=== PATIENT | female | born 1965 | race Two or more races ===

== ENCOUNTER 2024-12-18 10:29 | Emergency (ER) | payer MEDICAID, SELFPAY ==
--- NOTE | 2024-12-18 10:44 | XR_ITS ---
Examination: Thoracic spine 3 views Technique: AP lateral coned lateral upper dorsal spine 3 views Exam date and time: December 18, 2024 1057 hrs. Indication: Back pain beginning 10 days ago. Findings: Moderate osteopenia Chronic osteoporotic compression T12 Depression superior endplate T11 which may be acute, clinical correlation advised Mild diffuse thoracic disc narrowing Impression: Mild compression fracture T11 which may be acute, clinical correlation advised Consider CT scan thoracic spine without contrast follow-up
--- NOTE | 2024-12-18 10:44 | XR_ITS ---
Examination: Lumbar spine 3 views Technique one AP lateral coned lateral lower lumbar spine 3 views Exam date and time: December 18, 2024 1055 hrs. Indications: Back pain beginning 10 days ago. Findings: Adequate alignment lumbar vertebral bodies Minimal old wedging T12 No lumbar fracture Moderate disc narrowing L5-S1 No spondylolisthesis Impression: Moderate degenerative disc disease L5-S1
[2024-12-18 10:48] VITALS: BP 127/80; PULSE 57; RESP 20; TEMP 36.6; O2SAT 98; BMI 28.6
--- NOTE | 2024-12-18 10:49 | EDNOTE_ITS ---
ED Back Injury Pain RME/HPI General Chief Complaint: Back Pain/Injury Stated Complaint: LEFT BACK PAIN X 10 DAYS; HX A-FIB Time Seen by Provider: 12/18/24 10:37 Source: patient Arrival date/time: 12/18/24 10:29 59-year-old female with a history of A-fib, hyperlipidemia presents to the emergency room with a chief complaint of left-sided back pain x 10 days. Mode of arrival: ambulatory Limitations: no limitations Related Data Home Medications ?Medication ?Instructions ?Recorded ?Confirmed amiodarone 200 mg tablet 200 mg PO QDAY 07/06/2406/26 folic acid 1 mg tablet 1 mg PO QDAY 07/06/24 valsartan 80 mg tablet 80 mg PO QDAY 07/06/2407/06 Previous Rx's ?Medication ?Instructions ?Recorded hydrocodone 5 mg-acetaminophen 325 1 tab PO BID PRN pa in #10 tabs 12/18/24 mg tablet Allergies Allergy/AdvReac Type Severity Reaction Status Date / Time No Known Allergies Allergy Verified 12/18/24 10:32 Review of Systems Review of Systems Systems Reviewed: All systems reviewed, normal except as documented Constitutional Constitutional: Reports system reviewed and no additional complaints, except as documented, Denies fatigue, Denies fever(s), Denies headache(s) and Denies weakness Eyes Eyes: Reports system reviewed and no additional complaints, except as documented, Denies blurry vision and Denies change in vision ENT Ears, Nose, Mouth, and Throat: Reports system reviewed and no additional complaints, except as documented, Denies otalgia, Denies headache(s), Denies nasal congestion, Denies throat swelling and Denies vertigo Cardiovascular Cardiovascular: Reports system reviewed and no additional complaints, except as documented, Denies chest pain, Denies dyspnea and Denies dyspnea on exertion Respiratory Respiratory: Reports system reviewed and no additional complaints, except as documented, Denies chest congestion, Denies cough, Denies dyspnea, Denies dyspnea on exertion and Denies wheezing Gastrointestinal Gastrointestinal: Reports system reviewed and no additional complaints, except as documented, Denies abdominal pain, Denies cramping, Denies nausea and Denies vomiting Genitourinary Genitourinary: Reports system reviewed and no additional complaints, except as documented Musculoskeletal Musculoskeletal: Reports system reviewed and no additional complaints, except as documented, Reports arthralgias, Reports back pain and Reports muscle weakness Integumentary/Breasts Skin/Breast: Reports system reviewed and no additional complaints, except as documented and Denies wounds Neurologic Neurologic: Reports system reviewed and no additional complaints, except as documented, Denies confusion, Denies headache(s), Denies lack of coordination, Denies vertigo and Denies weakness Psychiatric Psychiatric: Reports system reviewed and no additional complaints, except as documented, Denies anxiety, Denies confusion, Denies depression, Denies paranoia, Denies suicidal ideation and Denies tactile hallucinations Endocrine Endocrine: Reports system reviewed and no additional complaints, except as documented and Denies fatigue Hematologic/Lymphatic Hematologic/Lymphatic: Reports system reviewed and no additional complaints, except as documented and Denies lymphadenopathy Allergic/Immunologic Allergic/Immunologic: Reports system reviewed and no additional complaints, except as documented, Denies throat swelling, Denies urticaria and Denies wheezing Past Medical History Past Medical History NEUROLOGIC: Negative Neurological Disorders CARDIAC: Positive Cardiac Disorders, Atrial Fibrillation and Hypertension; Negative Congestive Heart Failure RESPIRATORY: Negative Chronic Obstructive Pulmonary Disease (COPD) GASTROINTESTINAL: Negative Gastrointestinal Disorders GENITOURINARY: Negative Genitourinary Disorders or Renal Disease REPRODUCTIVE: Positive Previous Pregnancies MUSCULOSKELETAL: Negative Musculoskeletal Disorders ENT: Positive Cataracts ENDOCRINE: Positive Endocrine Disorders (Thyroid); Negative Diabetes Mellitus Type 1 or Diabetes Mellitus Type 2 HEMATOLOGIC: Positive Anemia (microcytic anemia, sees Dr Augustine); Negative Blood Disorders OTHER HISTORY: Positive Chicken Pox; Negative Hospitalization, Autoimmune Disease, Blood Transfusions, Anesthesia Reactions or Cancer Family History FAMILY HISTORY: Positive Family Cancer; Negative Family Psychiatric Problems, Family Respiratory Disorders, Family Cardiac Disorders, Family Gastrointestinal Problems, Family Surgery or Family Anesthesia Reaction Surgical History SURGICAL: Positive Tonsillectomy Social History SMOKING STATUS: Never smoker ED Exam General Limitations: Present no limitations General appearance: Present alert and in no apparent distress Head Head exam: Present atraumatic Eye Eye exam: Present normal appearance, PERRL and EOMI ENT ENT exam: Present normal exam, normal oropharynx and mucous membranes moist Neck Neck exam: Present normal inspection, full ROM and trachea midline Chest Chest inspection: Present normal inspection and symmetric chest wall rise Respiratory Respiratory exam: Present normal lung sounds bilaterally Cardiovascular Cardiovascular exam: Present regular rate, normal rhythm and normal heart sounds Abdominal Exam Abdominal exam: Present soft and normal bowel sounds Extremities Exam Extremities exam: Present normal inspection and full ROM Back Exam Back exam: Present normal inspection, full ROM, tenderness and vertebral tenderness; Absent CVA tenderness (R) or CVA tenderness (L) Back 1 view image: 2 1. Tenderness with palpation Neurological Exam Neurological exam: Present alert, oriented X3 and CN II-XII intact Psychiatric Psychiatric exam: Present normal affect and normal mood Skin Skin exam: Present warm, dry, intact and normal color Course Quality Measures none Orders Category Date Time Status CT thoracic spine wo con Stat Exams 12/18/24 14:06 Completed XR lumbar spine 2-3V Stat Exams 12/18/24 10:44 Completed XR thoracic spine 2V Stat Exams 12/18/24 10:44 Completed HYDROcodone*/APAP 5/325 [[place] 5/325] Med 12/18/24 14:07 Discontinued 1 tab PO X1 ONE Ketorolac Inj [Toradol Inj] Med 12/18/24 10:48 Discontinued 30 mg IM X1 ONE Ondansetron Odt [Zofran Odt] Med 12/18/24 14:07 Discontinued 4 mg PO X1 ONE Vital Signs Vital signs: Vital Signs Temperature 97.8 F 12/18/24 10:48 Pulse Rate 57 L 12/18/24 10:48 Respiratory Rate 20 12/18/24 10:48 Blood Pressure 127/80 12/18/24 10:48 Pulse Oximetry (%) 98 12/18/24 10:48 Oxygen Delivery Method Room Air 12/18/24 10:48 O2 saturation 98% within normal limits Back Pain / Injury MDM Narrative MDM Narrative:: 59-year-old female with a history of A-fib, hyperlipidemia presents to the emergency room with a chief complaint of left-sided back pain x 10 days. Patient is hemodynamically stable and in no apparent distress Physical examination shows tenderness and pain with palpation to the lumbar spine and thoracic area of her spine. Patient denies any trauma heavy lifting and states she just woke up with severe backside pain. Patient denies any saddle anesthesia, loss of bowel or bladder function, numbness to the lower extremities. Patient is able to ambulate but states she has pain. A CT of the thoracic spine was completed and shows a mild acute compression fracture of T11. Social service was contacted to have the patient receive a TLSO back brace. Patient was educated to follow-up with primary care provider for referral to an sales development specialist. Patient was educated return to the emergency room for any evidence of worsening signs or symptoms Patient data External records reviewed:: [facility] previous records Clinical information provided by:: patient Social determinants that could affect healthcare access:: none Patient has the following chronic illnesses:: A-fib How is presenting disease/condition affected by chronic disease/condition?: u neffected by Evaluation data The following diagnostics were reviewed and interpreted by me:: lab results and radiology exam(s) Lab and/or radiology exams considered but not ordered:: Labs and radiology exams considered and ordered Interpretation Summary: CT thoracic spine-Findings: Significant osteopenia Chronic osteoporotic compression T12 Acute mild compression fracture T11 vertebral body, depression superior endplate Reduction in height of this vertebral body 10% Adequate alignment of this vertebral body Impression: Mild acute compression fracture T11 vertebral body Medications / Prescriptions Medications or Prescriptions considered but not ordered:: Medication given Medication administrations:: Medication Administration History Discontinued Medications Hydrocodone Bitart/Acetaminophen (Hydrocodone/Apap 5/325 Tablet) 1 tab PO X1 ONE Stop: 12/18/24 14:08 Last Admin: 12/18/24 15:33 Dose: 1 tab Documented By: LETICIA Ketorolac Tromethamine (Ketorolac Inj 60 Mg/2 Ml Vial) 30 mg IM X1 ONE Stop: 12/18/24 10:49 Last Admin: 12/18/24 11:28 Dose: 30 mg Documented By: CAMPBELL Ondansetron HCl (Ondansetron Odt 4 Mg Tabrap) 4 mg PO X1 ONE; Protocol Stop: 12/18/24 14:08 Last Admin: 12/18/24 15:33 Dose: 4 mg Documented By: [facility] Medication given Consultations Consultation(s) initiated? (list below): No Diagnosis Differential diagnosis back pain/injury: lumbar radiculopathy, sciatica, strain of lumbar region, thoracic back pain and other (Compression fracture) Most likely diagnosis given after review of the tests above:: Compression fracture Admission Indicated Admission indicated?: not indicated Admission Request Was there a request for admission?: No Disposition Plan Disposition Plan: Discharge Discharge Attestation Discharge Attestation: The patient and all family members were given an opportunity to ask questions and understood the discharge instructions. Discharge instructions specifically effects, indications for sooner follow up or return to the emergency department, and the expected course of current diagnosis. Patient condition: Stable Discharge Plan Plan Patient Disposition: HOME (Self Care) Disposition Comment: Stable Prescriptions/Referrals Prescriptions/Med Rec: New hydrocodone-acetaminophen 5-325 mg tablet 1 tab PO BID MDD 10mg PRN (Reason: pain) Qty: 10 0RF No Action amiodarone 200 mg Tablet 200 mg PO QDAY valsartan 80 mg Tablet 80 mg PO QDAY folic acid 1 mg Tablet 1 mg PO QDAY Referrals: Mariya Alonzo PA-C [Primary Care Provider] - In 1 week Problem List Clinical Impression: Compression fracture of thoracic vertebra Patient/Caregiver Discharge Instructions Education Materials: Back Fracture (Compression Fracture), ED Fracture, Vertebral Compression Additional Instructions: Please follow-up with your primary care provider in the next [address] of your thoracic back showed a compression fracture to T11. A back brace was ordered and they will be going to your house as this brace will need to be fitted. This is a TLSO brace. Please follow-up with your primary care provider as you will need a referral to an sales development specialist. Pain medication was sent to your pharmacy For any evidence of worsening signs or symptoms please return to the emergency room immediately Print Language: Uzbek Stand Alone Forms: Tiffani Award Info., Patient Portal Info Letter MATEO/LEVI Supervising Physician MATEO/LEVI Supervising Physician: Dr. Richardson
[2024-12-18] MEDS: KETOROLAC INJ 60 MG/2 ML VIAL 30 MG IM (11:28)
--- NOTE | 2024-12-18 14:06 | XR_ITS ---
Examination: CT thoracic spine, without contrast. 2-D sagittal reconstructions. 2-D coronal reconstructions. 3-D reconstructions. Date and time of exam:December 18, 2023 at 1500 hrs. Indications: Generalized back pain beginning 2 weeks ago CTDI: vol (mGy):24.3 DLP: (mGycm):971 Technique: Multiple 1.25 mm axial sections of the thoracic spine without intravenous contrast have been obtained. 2-D sagittal and coronal reconstructions have been obtained. 3-D reconstructions have been obtained. Low dose protocols were performed. One or more of the following dose reduction techniques were used; automated exposure control, adjustment of the mA and/or KV according to patient size, use of iterative reconstruction technique. Findings: Significant osteopenia Chronic osteoporotic compression T12 Acute mild compression fracture T11 vertebral body, depression superior endplate Reduction in height of this vertebral body 10% Adequate alignment of this vertebral body Impression: Mild acute compression fracture T11 vertebral body
[2024-12-18 15:30] VITALS: BP 127/77; PULSE 55; RESP 16; O2SAT 99
--- NOTE | 2024-12-18 15:30 | PC.NURSE ---
pt here with c/o back pain X 10 days after lifing and stacking 2 chairs. Denies fall
[2024-12-18] MEDS: HYDROcodone/APAP 5/325 TABLET 1 TAB PO (15:33)
[2024-12-18] MEDS: ONDANSETRON ODT 4 MG TABRAP PO (15:33)
--- NOTE | 2024-12-18 16:38 | PC.CC ---
ASWYvonne was consulted by VLADISLAV Barlow for a TLSO Brace due to T11 FX. ASW made contact with Damián from [facility] who reports they can respond to the patient's home tomorrow morning and will make contact with the patient this evening to set up a time. ASW made face to face contact with the patient to confirm information on demographics. ASW sent purchase requisition sign by jail guard Sheryl, Script, and patient's demographics sheet to [facility]. Damián with [facility] confirmed he had received all information needed and would be making contact with patient. ASW provided update to patient.
== END 2024-12-18 16:49 | disposition home or self-care (01) ==
PROVIDERS: Emergency Provider Emergency Medicine; PCP Physician Assistant
DX: M48.54XA Collapsed vertebra, not elsewhere classified, thoracic region, initial encounter for fracture (principal); M54.50 Low back pain, unspecified
CPT/HCPCS: 72070; 72072; 72100; 72128; 96372; 99284; J1885; Q0162; A9270

== ENCOUNTER 2025-01-27 09:00 | Day surgery (SDC) | payer MEDICAID, SELFPAY ==
[2025-01-24 10:31] VITALS: BMI 34.0
[2025-01-24 11:16] LABS: Basophils # (Auto) 0.1 Thou/mm3 (0.0-0.2); Basophils % (Auto) 1 % (0-2.5); Eosinophils # (Auto) 0.1 Thou/mm3 (0.0-0.5); Eosinophils % (Auto) 1 % (0-10); Hematocrit 32.8 % (36.0-46.0); Hemoglobin 10.6 g/dL (12.0-16.0); Immature Granulocytes % (Auto) 1 % (0-0); Immature Granulocytes Auto 0.05 Thou/mm3 (0.00-0.00); Lymphocytes # (Auto) 2.9 Thou/mm3 (1.0-4.8); Lymphocytes % (Auto) 31 % (10-50); Mean Corpuscular HGB Conc 32.3 g/dl (31.0-37.0); Mean Corpuscular Hemoglobin 20.1 pg (25.0-35.0); Mean Corpuscular Volume 62 fL (80-100); Monocytes # (Auto) 0.6 Thou/mm3 (0.0-0.8); Monocytes % (Auto) 6 % (0-12); Neutrophils # (Auto) 5.9 Thou/mm3 (1.8-7.7); Neutrophils % (Auto) 61 % (37-80); Nucleated Red Blood Cell # 0.05 Thou/mm3 (0.00-0.00); Nucleated Red Blood Cell % 1 /100 WBC (0); Platelet Count 224 Thou/mm3 (140-440); RDW Standard Deviation 34.1 fL (36.4-46.3); Red Blood Count 5.28 Miln/mm3 (4.00-5.20); White Blood Count 9.6 Thou/mm3 (3.6-11.0)
[2025-01-24 11:35] LABS: Alanine Aminotransferase 16 U/L (10-49); Albumin, Serum 4.6 gm/dL (3.5-5.0); Albumin/Globulin Ratio 1.8 (1.2-2.2); Alkaline Phosphatase 109 U/L (46-116); Anion Gap 6 (7-16); Aspartate Amino Transferase 15 U/L (0-34); BUN/Creatinine Ratio 14 Ratio (12-20); Bilirubin,Total 0.9 mg/dL (0.3-1.2); Blood Urea Nitrogen 11 mg/dL (9-23); Calcium 9.4 mg/dL (8.3-10.6); Calcium (Corrected) 9.4 mg/dL (8.5-10.1); Carbon Dioxide 28.5 mMol/L (20.0-31.0); Chloride 110 mMol/L (98-107); Creatinine (Component) 0.8 mg/dL (0.6-1.3); Estimated Creatinine Clearance 85.2 mL/min (>60); Globulin 2.5 gm/dL (2.3-3.5); Glucose 102 mg/dL (74-106); Osmolality,Calculated 286 (275-295); Potassium 4.2 mMol/L (3.4-5.1); Sodium 144 mMol/L (136-145); Thyroid Stimulating Hormone 0.79 uIU/mL (0.55-4.78); Total Protein 7.1 gm/dL (5.7-8.2); eGFR > 60 See Note
--- NOTE | 2025-01-26 14:51 | SUR.PREOP ---
Pt notified to come in at 0900 tomorrow for surgery.
--- NOTE | 2025-01-26 14:52 | SUR.PREOP ---
Cardiac records reviewed with Dr Jerome.
[2025-01-27] VITALS (10 sets, daily range): BP systolic 125–154; BP diastolic 63–88; PULSE 55–60; RESP 13–20; TEMP 36.1–37.1; O2SAT 92–100; BMI 32.5
--- NOTE | 2025-01-27 10:25 | SUR.PREOP ---
Patient expressed gratitude for prayer before their procedure.
--- NOTE | 2025-01-27 13:09 | SUR.PHASEI ---
1309: Pt. AAOx4, vitals stable, breathing unlabored, no complaint of pain or nausea, dressing to throat CDI, no active bleed noted, report received from MD Lopez, Fredi RN, and Hien PINEDA.
[2025-01-27] MEDS: fentaNYL CIT INJ 50 mCg/ML AMP 2ML 25 MCG IV ×2 (13:23→13:37)
[2025-01-27] MEDS: ACETAMINOPHEN IVPB 1,000 MG/100 ML VIAL 250 MG IV (13:24)
--- NOTE | 2025-01-27 13:45 | ESOP_ITS ---
Date of Procedure 01/27/25 Pre Op Diagnosis Bilateral thyroid nodules, left suspicious for malignancy Post Op Diagnosis Bilateral thyroid nodules, left suspicious for malignancy Procedure Total thyroidectomy with central lymph node dissection Findings An approximately 2.5 cm hard left superior nodule. Soft nodule on the mid right lobe Procedure Description Patient brought to the operating room in supine position. After administration of general endotracheal anesthesia, patient's neck was extended and prepped and draped in standard surgical manner. An approximately 5 cm semicircular incision was made approximately 2 fingerbreadths above the sternal notch. Dissection was carried subcutaneous tissue and platysma was divided. Superior and inferior subplatysmal plane were developed. Median raphae was identified and divided. The strap muscle on the left side was retracted laterally and the areolar tissue between the strap muscle and the thyroid tissues were divided. The median thyroid vein was identified and ligated. Patient was noted to have a hard nodule on the left superior lobe. The superior pole vessels were mobilized and divided with 0 silk tie. The inferior vessels were then individually identified and ligated. The recurrent laryngeal nerve on the left side was identified and kept away from dissection proceeded all times. I was able to identify the superior and inferior parathyroid glands on the left side and I was able to preserve them. Once the vessels were ligated the thyroid was from the anterior surface of the trachea by dividing the ligament of Smith. I then turned my attention to patient's right thyroid lobe. Patient was noted to have a soft nodule on the mid right lobe. The procedure was performed in similar fashion. Recurrent laryngeal nerve was identified and preserved. I was only able to identify the inferior parathyroid gland, I was unable to clearly identify the right superior parathyroid gland. The lymphatic tissues between the right and left carotid arteries were dissected and removed along with the thyroid glands. Both sides were copiously thoroughly washed and irrigated, all the fluids were suctioned in the section fluids and clear. Hemostasis was adequate and satisfactory. Topical hemostatic agent snow Surgicel placed on both sides of the neck to further secure hemostasis. Median raphae was then closed with running 2-0 Vicryl. Platysma reapproximated with interrupted sutures using 3-0 Vicryl, and the incision was closed with 4-0 Monocryl subcut icular fashion. Instruments, needle and sponge counts were reported to be correct ?2. Patient tolerated procedure well. She was extubated, breathing spontaneously and without difficulty and was transferred to postanesthesia care in stable condition. Anesthesia GETA and local Pathology / specimen Other (Total thyroid with central lymph nodes) Estimated Blood Loss 25 Condition Stable Disposition PACU Surgeon Bassam Mcneal MD Surgical Staff Operation Date: 01/27/25 11:00 Case Staff Anesthesiologist: Charanjit Lopez RN First Assistant: Nanci Griffin
[2025-01-27] MEDS: HYDROmorphone INJ 2 MG/ML VIAL 0.4 MG IV ×2 (13:48→14:32)
--- NOTE | 2025-01-27 15:00 | SUR.PHASEII ---
1500: Pt. AAOx4, vitals stable, breathing unlabored, complaint 2/10 pain, pt. states pain is tolerable, no complaint of nausea, dressing to neck CDI, no active bleed noted, pt. tolerated sips of coffee well, pt. ambulated to wheelchair with steady gait and no assist, no complications. Gave discharge instructions to the pt. and her ride, both verbalized understanding and had no further questions. ( Family translated, consent form for translation signed) Pt. left with all personal belongings.
== END 2025-01-27 15:00 | disposition home or self-care (01) ==
PROVIDERS: PCP Physician Assistant; Referring Provider Surgery; Visit Provider Surgery
PROC: (CPT 60252; principal; 2025-01-27 11:00)
DX: C73 Malignant neoplasm of thyroid gland (principal); I11.0 Hypertensive heart disease with heart failure; I50.9 Heart failure, unspecified; I48.91 Unspecified atrial fibrillation; F17.200 Nicotine dependence, unspecified, uncomplicated; Z90.49 Acquired absence of other specified parts of digestive tract; Z79.01 Long term (current) use of anticoagulants; Z79.899 Other long term (current) drug therapy
CPT/HCPCS: 60252; 36415; 80053; 84443; 85025; A4217; A4649; J0131; J0690; J1100; J1885; J2250; J2371; J2405; J2704; J3010; J3490

== ENCOUNTER 2025-02-23 13:59 | Outpatient (RCR) | payer MEDICAID, SELFPAY ==
--- NOTE | 2025-02-23 16:02 | CTCCONSULT_ITS ---
[facility] [address] [place], [place] [address] Consultation Note Date: 02/23/2025 MR#: [id number] Name: GRICELDA CRAMER : 1965 Dx: [id number] Malignant neoplasm of thyroid gland Attending physician. MATEO Hannah REFERRING PHYSICIAN. BASSAM RODRIGUEZ MD Reason for consultation. 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 History of Present Illness: Patient is a 59-year-old gentleman who underwent total thyroidectomy on 01/27/2025 revealing multifocal right lobe (0.5 cm) and left lobe (1.3 x1x0.7cm) papillary thyroid carcinoma margins negative angioinvasion not seen lymphatic invasion not seen with 9 lymph nodes removed which were negative for mets. gP3tdT1. Patient is currently on 100 mcg of Synthroid. Past Medical History: Anemia hypertension atrial fibrillation gallbladder disease thyroid cancer Meds. Valsartan and folic acid Eliquis levothyroxine 100 mcg a day. Social History: Patient is a [place] Manda[place] background seeking asylum. Postmenopausal. Review of Systems: Denies fatigue weight loss chills Physical Exam: General: Well-appearing lady no acute distress HEENT: Well-healed scar low neck CV: Chest clear to auscultation heart regular rate and rhythm ABD: No organomegaly or tenderness EXT: No sinus clubbing or edema Assessment:1. Patient with [id number] multifocal papillary thyroid cancer status post total thyroidectomy 01/27/2025 with negative margins angioinvasion lymphatic invasion extrathyroidal extension not seen. 2. Patient is between favorable and small risk of recurrence 3. Recommend low dosage 30 mCi for ablation and total body iodine scan. 4. Told to take half strength Synthroid for the next 4 weeks followed by no thyroid medications or seafood prior to anticipated radioiodine and told by the iodine scan thereafter. Isolation procedures discussed. 5. Thank you much allow me to evaluate this patient Cc: Bassam Spencer PA-C [facility] Electronically signed by: Alec Hamilton MD, DABR 02/23/2025 4:00 PM
== END 2025-03-25 23:59 | disposition home or self-care (01) ==
LOC: SCTC 13:59
PROVIDERS: PCP Physician Assistant; Referring Provider Surgery; Visit Provider Radiology Therapeutic Radiology
DX: C73 Malignant neoplasm of thyroid gland (principal); E89.0 Postprocedural hypothyroidism
CPT/HCPCS: 99213; G0463

== ENCOUNTER 2025-03-14 13:36 | Emergency (ER) | payer MEDICAID, SELFPAY ==
[2025-03-14 13:37] VITALS: BMI 29.6
--- NOTE | 2025-03-14 13:41 | EKG_ITS ---
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
[2025-03-14 13:49] VITALS: BP 92/71; PULSE 165; RESP 18; TEMP 37; O2SAT 98
--- NOTE | 2025-03-14 14:09 | XR_ITS ---
Examination: AP chest single view Technique one AP portable upright chest single view Exam date and time: March 14, 2025 1422 hours INDICATIONS: Chest pain shortness of breath beginning 2 days ago FINDINGS: Normal heart size. No pneumonia or pulmonary edema Prominent osteopenia IMPRESSION: No pneumonia or pulmonary edema
--- NOTE | 2025-03-14 14:14 | PD.EDADULT ---
ED General RME/HPI General Chief complaint: Dizziness Stated complaint: DIZZY, FAST HEART RATE AT HOME Time Seen by Provider: 03/14/25 14:04 Arrival date/time: 03/14/25 13:36 RME / HPI RME / HPI narrative: This patient is a 59-year-old female with past medical history of atrial fibrillation was on amiodarone, hypertension, status post total thyroidectomy due to stage I thyroid cancer presented to the ER with chief complaint of dizziness associated with supraventricular tachycardia heart rate in 160s. She denied any chest pain, shortness of breath, abdominal pain, nausea, vomiting, fever chills, burning or dysuria. Patient is following Dr. Thompson, border measurer and cutter as outpatient. She also follows Dr. Cortes for heart rhythm analysis. Patient had recently undergone total thyroidectomy status post stage I thyroid cancer and is on levothyroxine and is following with Dr. Mcneal, surgeon as outpatient. Patient is currently on tapering dose of levothyroxine. Patient is following up Dr. Hamilton, oncologist post total thyroidectomy performed on 01/27/25 due to multifocal right and left papillary thyroid carcinoma. Per chart seen by Dr Hamilton on 02/23/25 Patient is getting low dosage 30 MCI for ablation and total body iodine scan. She was advised to take half strength Synthroid for the next 4 weeks followed by no thyroid medications or seafood prior to anticipated radioiodine. PMH: As above PSH: Ablation surgery for A-fib before, total thyroidectomy s/p stage I thyroid cancer SH: Denies smoking, drinking alcohol. No history of illicit drug use patient is along with her . Allergies: No known drug allergies Home medications: Levothyroxine 100 mcg, folic acid 1 mg, valsartan 60 mg once a day, Eliquis 5 mg twice daily Initial EKG showed supraventricular tachycardia rate 160.Initial EKG showed heart rate 159 with atrial flutter/tachycardia with RVR. QTc 462. Chest x-ray showed no active disease. Post administration of adenosine EKG showed sinus rhythm with ventricular rate 62 QTc [address]-T changes. Differential diagnoses include SVT, dizziness, A-fib Pre-administration of adenosine vitals showed blood pressure 92/71. Post administration adenosine vitals showed blood pressure 114/79 dropped to 90/70 therefore 1 L bag of fluid was given. Patient was given 6 mg adenosine x 1 along with 1 L bolus of NS x 1. Pacer pads were placed before administration of adenosine. She felt alittle tightness over her chest after adenosine but was doing fine. 15:03 CBC showed white count 13.7, hemoglobin 11.1, platelet count 232. Chemistry panel showed sodium 143, potassium 4.2, chloride 110. Bicarb 22.9. BUN 12 and creatinine 0.9. Magnesium 1.9. Troponin I was negative less than 0.020. BNP is pending. TSH 32.14 and free T4 0.73. On reevaluation, patient's blood pressure was soft with MAP of 65 therefore was given 1 L additional bag of normal saline and 2 g of magnesium. 16: 00 Another EKG was performed to evaluate patient's rhythm.EKG showed sinus bradycardia with first degree AV blockade.Qtc 434 Vitals showed Heart rate around 51 Bpm with sinus rhythm. She had mild backpain and was giving lidocaine patch. She denied any chest discomfort or shortness of breath. Patient can be safely discharged after completion of IV magnesium and fluid resuscitation. She was stable at the time of discharge. Her thyroid functions were consistent with hypothyroidism and patient is already following her primary care doctor and oncologist was keeping a close follow-up on her TFTs and was advised to follow-up with them. She was walked around the hallway to evaluate for dizziness and any other symptoms. She can be discharge once her IV meds are completed. RN was notified. MD complaint: Dizziness and supraventricular tachycardia Onset (ago): day(s) (1) Related Data Home Medications ?Medication ?Instructions ?Recorded ?Confirmed amiodarone 200 mg tablet 200 mg PO QDAY 07/06/24 07/06/24 folic acid 1 mg tablet 1 mg PO QDAY 07/06/24 07/06/24 valsartan 80 mg tablet 80 mg PO QDAY 07/06/24 07/06/24 apixaban 5 mg tablet (Eliquis) 5 mg PO BID 09/13/24 01/24/25 Held on 01/27/25. Instructions: Resume on 01/31/25. folic acid 1 mg tablet 1 mg PO DAILY 09/13/24 01/24/25 valsartan 80 mg tablet 80 mg PO DAILY 09/13/24 01/27/25 Previous Rx's ?Medication ?Instructions ?Recorded hydrocodone 5 mg-acetaminophen 325 1 tab PO BID PRN pain #10 tabs 12/18/24 mg tablet calcium carbonate (Calcium 500) 500 mg PO BID #30 tabs 01/27/25 docusate sodium 100 mg capsule 100 mg PO BID #40 caps 01/27/25 (Colace) hydrocodone 5 mg-acetaminophen 325 1 tab PO Q6H PRN pain (scale score 01/27/25 mg tablet 7-10) #15 tabs ibuprofen 600 mg tablet 600 mg PO Q8H PRN pain (scale 01/27/25 score 4-6) #15 tabs levothyroxine 100 mcg tablet 100 mcg PO QDAY #30 tabs 01/27/25 (Synthroid) Allergies Allergy/AdvReac Type Severity Reaction Status Date / Time No Known Allergies Allergy Verified 03/14/25 13:37 Review of Systems Review of Systems Systems Reviewed: All systems reviewed, normal except as documented Past Medical History Past Medical History NEUROLOGIC: Negative Neurological Disorders CARDIAC: Positive Cardiac Disorders, Atrial Fibrillation and Hypertension; Negative Congestive Heart Failure RESPIRATORY: Negative Chronic Obstructive Pulmonary Disease (COPD) GASTROINTESTINAL: Negative Gastrointestinal Disorders GENITOURINARY: Negative Genitourinary Disorders or Renal Disease REPRODUCTIVE: Positive Previous Pregnancies MUSCULOSKELETAL: Negative Musculoskeletal Disorders ENT: Positive Cataracts ENDOCRINE: Positive Endocrine Disorders (Thyroid); Negative Diabetes Mellitus Type 1 or Diabetes Mellitus Type 2 HEMATOLOGIC: Positive Anemia (microcytic anemia, sees Dr Augustine); Negative Blood Disorders OTHER HISTORY: Positive Chicken Pox; Negative Hospitalization, Autoimmune Disease, Blood Transfusions, Anesthesia Reactions or Cancer Family History FAMILY HISTORY: Positive Family Cancer; Negative Family Psychiatric Problems, Family Respiratory Disorders, Family Cardiac Disorders, Family Gastrointestinal Problems, Family Surgery or Family Anesthesia Reaction Surgical History SURGICAL: Positive Tonsillectomy Social History SMOKING STATUS: Never smoker ED Exam Narrative Physical exam: GENERAL APPEARANCE: AxOx4, generally well-appearing female in mild distress due to racing of heart. HEENT: NC, AT. Dry mucous membrane. EOMI, clear conjunctiva, oropharynx clear. NECK: Supple without lymphadenopathy. No stiffness or restricted ROM. HEART: Sinus tachycardia with regular rhythm/SVT, normal S1/S2, no m/r/g LUNGS: CTAB, moving air well. No crackles or wheezes are heard. ABDOMEN: Soft, nontender, nondistended with good bowel sounds heard. BACK: No CVAT, no obvious deformity. EXTREMITIES: Without cyanosis, clubbing or edema. NEUROLOGICAL: Grossly nonfocal. Alert and oriented, moving all 4 extremities. CN not formally tested but appear grossly intact. Observed to ambulate with normal gait. Skin: Warm and dry without any rash. Psych: Appropriate mood and affect Course Course Course Narrative: This patient is a 59-year-old female with past medical history of atrial fibrillation was on amiodarone, hypertension, status post total thyroidectomy due to stage I thyroid cancer presented to the ER with chief complaint of dizziness associated with supraventricular tachycardia heart rate in 160s. She denied any chest pain, shortness of breath, abdominal pain, nausea, vomiting, fever chills, burning or dysuria. Patient is following Dr. Thompson, border measurer and cutter as outpatient. She also follows Dr. Cortes for heart rhythm analysis. Patient had recently undergone total thyroidectomy status post stage I thyroid cancer and is on levothyroxine and is following with Dr. Mcneal, surgeon as outpatient. Patient is currently on tapering dose of levothyroxine. Patient is following up Dr. Hamilton, oncologist post total thyroidectomy performed on 01/27/25 due to multifocal right and left papillary thyroid carcinoma. Per chart seen by Dr Hamilton on 02/23/25 Patient is getting low dosage 30 MCI for ablation and total body iodine scan. She was advised to take half strength Synthroid for the next 4 weeks followed by no thyroid medications or seafood prior to anticipated radioiodine. Initial EKG showed supraventricular tachycardia rate 160. Post administration of adenosine EKG showed sinus rhythm with ventricular rate 62 QTc [address]-T changes. Differential diagnoses include SVT, dizziness, A-fib Pre-administration of adenosine vitals showed blood pressure 92/71. Post administration adenosine vitals showed blood pressure 114/79 dropped to 90/70 therefore 1 L bag of fluid was given. Patient was given 6 mg adenosine x 1 along with 1 L bolus of NS x 1. Pacer pads were placed before administration of adenosine.She felt alittle tightness over her chest after adenosine but was doing fine. 15:03 CBC showed white count 13.7, hemoglobin 11.1, platelet count 232. Chemistry panel showed sodium 143, potassium 4.2, chloride 110. Bicarb 22.9. BUN 12 and creatinine 0.9. Magnesium 1.9. Troponin I was negative less than 0.020. BNP is pending. TSH 32.14 and free T4 0.73. On reevaluation, patient's blood pressure was soft with MAP of 65 therefore was given 1 L additional bag of normal saline and 2 g of magnesium. 16: 00 Another EKG was performed to evaluate patient's rhythm.EKG showed sinus bradycardia with first degree AV blockade.Qtc 434 Vitals showed Heart rate around 51 Bpm with sinus rhythm. She had mild backpain and was giving lidocaine patch. She denied any chest discomfort or shortness of breath. Patient can be safely discharged after completion of IV magnesium and fluid resuscitation. She was stable at the time of discharge. Her thyroid functions were consistent with hypothyroidism and patient is already following her primary care doctor and oncologist was keeping a close follow-up on her TFTs and was advised to follow-up with them. She was walked around the hallway to evaluate for dizziness and any other symptoms. She can be discharge once her IV meds are completed. RN was notified. Quality Measures none Orders Category Date Time Status EKG (ED ONLY) *Do not use* NOW Care 03/14/25 13:41 Completed EKG (ED ONLY) *Do not use* NOW Care 03/14/25 15:41 Completed Miscellaneous Nursing Order NOW Care 03/14/25 15:09 Active EKG (ED Only) Stat Exams 03/14/25 13:41 Draft EKG (ED Only) Stat Exams 03/14/25 16:00 Draft XR chest 1V portable Stat Exams 03/14/25 14:09 Completed B-Type Natriuretic Peptide Stat Lab 03/14/25 14:20 Completed CBC Stat Lab 03/14/25 14:20 Completed Comprehensive Metabolic Panel Stat Lab 03/14/25 14:20 Completed Free T4 (Free Thyroxine) Stat Lab 03/14/25 14:20 Completed Lactate (Lactic Acid) Stat Lab 03/14/25 14:20 Completed Lactic Acid, 3 HR Stat Lab 03/14/25 17:25 Ordered Lipase Stat Lab 03/14/25 14:20 Completed Magnesium Stat Lab 03/14/25 14:20 Completed Path Review Blood Smear Stat Lab 03/14/25 14:20 Completed TSH [Thyroid Stimulating Hormone] Stat Lab 03/14/25 14:20 Completed Troponin I Stat Lab 03/14/25 14:20 Completed Adenosine 6mg Inj [Adenocard Inj] Med 03/14/25 14:18 Discontinued 12 mg IVP X1 ONE Adenosine 6mg Inj [Adenocard Inj] Med 03/14/25 14:14 Discontinued 6 mg IVP X1 ONE Lidocaine 5% Patch Med 03/14/25 16:01 Discontinued 1 patch TOP X1 ONE Magnesium Sulfate 2 GM Ivpb [Magnesium Sulfate Ivpb] Med 03/14/25 15:03 Discontinued 2 gm in 50 ml IV X1 Sodium Chloride 0.9% 1000 ml [Ns] 1,000 ml Med 03/14/25 14:31 Discontinued IV 999 mls/hr Sodium Chloride 0.9% 1000 ml [Ns] 1,000 ml Med 03/14/25 14:32 Discontinued IV 999 mls/hr Sodium Chloride 0.9% 1000 ml [Ns] 1,000 ml Med 03/14/25 15:09 Discontinued IV 999 mls/hr Vital Signs Vital signs: Vital Signs Temperature 98.6 F 03/14/25 13:49 Pulse Rate 165 H 03/14/25 13:49 Respiratory Rate 18 03/14/25 13:49 Blood Pressure 92/71 03/14/25 13:49 Pulse Oximetry (%) 98 03/14/25 13:49 Oxygen Delivery Method Room Air 03/14/25 13:49 Critical Care Time Critical Care Time Critical Care Time: Yes Total Critical Care Time (min.): 35 Attestation: The high probability of sudden, clinically significant deterioration in the patient?s condition required the highest level of my preparedness to intervene urgently. The services I provided to this patient were to treat and/or prevent clinically significant deterioration. Services included the following: chart data review, reviewing nursing notes and/or old charts, documentation time, internal audit consultant collaboration regarding findings and treatment options, medication orders and management, direct patient care, vital sign assessments and ordering, interpreting and reviewing diagnostic studies and lab tests. Aggregate critical care time includes only time during which I was engaged in work directly related to the patient?s care, as described above, whether at bedside or elsewhere in the Emergency Department. It did not include time spent performing other reported procedures or the services of residents, students, nurses or physician assistants. Discharge Plan Plan Patient Disposition: HOME (Self Care) Patient condition on transfer: Stable Prescriptions/Referrals Prescriptions/Med Rec: No Action hydrocodone-acetaminophen 5-325 mg tablet 1 tab PO BID MDD 10mg PRN (Reason: pain) Qty: 10 0RF levothyroxine [Synthroid] 100 mcg tablet 100 mcg PO QDAY Qty: 30 3RF docusate sodium [Colace] 100 mg capsule 100 mg PO BID Qty: 40 0RF hydrocodone-acetaminophen 5-325 mg tablet 1 tab PO Q6H MDD 4 PRN (Reason: pain (scale score 7-10)) Qty: 15 0RF ibuprofen 600 mg tablet 600 mg PO Q8H PRN (Reason: pain (scale score 4-6)) Qty: 15 0RF calcium carbonate [Calcium 500] 500 mg calcium (1,250 mg) tablet,chewable 500 mg PO BID Qty: 30 0RF amiodarone 200 mg Tablet 200 mg PO QDAY valsartan 80 mg Tablet 80 mg PO QDAY folic acid 1 mg Tablet 1 mg PO QDAY valsartan 80 mg tablet 80 mg PO DAILY Patient Comments: TAKE ONE TABLET BY MOUTH EVERY DAY FOR BLOOD PRESSURE folic acid 1 mg tablet 1 mg PO DAILY Patient Comments: TAKE ONE TABLET BY MOUTH EVERY DAY VITAMIN Eliquis 5 mg tablet 5 mg PO BID Patient Comments: TAKE ONE TABLET BY MOUTH TWICE DAILY FOR THE HEART Problem List Clinical Impression: Supraventricular tachycardia, Dizziness Patient/Caregiver Discharge Instructions Other Activity Instructions:: Patient was found to have supraventricular tachycardia which converted to sinus rhythm with 1 dose of adenosine 6 mg x 1. She was stable at the time of discharge. Patient will need to follow-up with PCP as outpatient within a week Patient will need to follow-up with her border measurer and cutter and oncologist as outpatient She can follow-up with Gen surgeon, Dr Mcneal for thyroid workup In case of emergency or worsening signs or symptoms, she was advised to return back to the ER or call 911 Education Materials: Treatment for Supraventricular ... Additional Instructions: See your doctor for follow-up on your SVT and your thyroid disease as we discussed. Print Language: Italian Stand Alone Forms: [employer] Award Info., Patient Portal Info Letter Attestation Attestation I, Bruce Richardson MD, have reviewed the history, exam, and assessment of the patient. I have evaluated the patient independently and agree with the plan of care documented by [ ]. All diagnostic studies were reviewed and discussed. I confirm the diagnosis as documented by the Resident. I was present during the Medical Decision Making for this patient. The patient's plan of care was created between myself and the Resident and consistent with our discussion of the patient's case. [facility] Narrative Sign out note: Note the patient was worked up by myself and the resident and agree for the resident's notes below and the patient is final disposition and care was signed out at 1630 hrs. She be noted patient completed her magnesium she is up ambulating she feels great she wants to go home she has had no recurrence of her SVT while she was here. There was a second lactic acid to follow-up on the first 1 which the patient was tired of being poked and refused the final draw but patient clinically looks fine I do not think the second lactic acid is going to change anything as she is smiling ready to go. She also going to follow-up with her border measurer and cutter Dr. Thompson in [place] and Dr. Reilly Callahan because of the recurring SVT. Notes she is being evaluated for her thyroid disease and will follow-up with her doctors on that. At 1807 hrs. and she is alert awake smiling and ready to be discharged. [facility] hospital course: This patient is a 59-year-old female with past medical history of atrial fibrillation was on amiodarone, hypertension, status post total thyroidectomy due to stage I thyroid cancer presented to the ER with chief complaint of dizziness associated with supraventricular tachycardia heart rate in 160s. She denied any chest pain, shortness of breath, abdominal pain, nausea, vomiting, fever chills, burning or dysuria. Patient is following Dr. Thompson, border measurer and cutter as outpatient. She also follows Dr. Cortes for heart rhythm analysis. Patient had recently undergone total thyroidectomy status post stage I thyroid cancer and is on levothyroxine and is following with Dr. Mcneal, surgeon as outpatient. Patient is currently on tapering dose of levothyroxine. Patient is following up Dr. Hamilton, oncologist post total thyroidectomy performed on 01/27/25 due to multifocal right and left papillary thyroid carcinoma. Per chart seen by Dr Hamilton on 02/23/25 Patient is getting low dosage 30 MCI for ablation and total body iodine scan. She was advised to take half strength Synthroid for the next 4 weeks followed by no thyroid medications or seafood prior to anticipated radioiodine. Initial EKG showed supraventricular tachycardia rate 160. Post administration of adenosine EKG showed sinus rhythm with ventricular rate 62 QTc [address]-T changes. Differential diagnoses include SVT, dizziness, A-fib Pre-administration of adenosine vitals showed blood pressure 92/71. Post administration adenosine vitals showed blood pressure 114/79 dropped to 90/70 therefore 1 L bag of fluid was given. Patient was given 6 mg adenosine x 1 along with 1 L bolus of NS x 1. Pacer pads were placed before administration of adenosine.She felt alittle tightness over her chest after adenosine but was doing fine. 15:03 CBC showed white count 13.7, hemoglobin 11.1, platelet count 232. Chemistry panel showed sodium 143, potassium 4.2, chloride 110. Bicarb 22.9. BUN 12 and creatinine 0.9. Magnesium 1.9. Troponin I was negative less than 0.020. BNP is pending. TSH 32.14 and free T4 0.73. On reevaluation, patient's blood pressure was soft with MAP of 65 therefore was given 1 L additional bag of normal saline and 2 g of magnesium. 16: 00 Another EKG was performed to evaluate patient's rhythm.EKG showed sinus bradycardia with first degree AV blockade.Qtc 434 Vitals showed Heart rate around 51 Bpm with sinus rhythm. She had mild backpain and was giving lidocaine patch. She denied any chest discomfort or shortness of breath. Patient can be safely discharged after completion of IV magnesium and fluid resuscitation. She was stable at the time of discharge. Her thyroid functions were consistent with hypothyroidism and patient is already following her primary care doctor and oncologist was keeping a close follow-up on her TFTs and was advised to follow-up with them. She was walked around the hallway to evaluate for dizziness and any other symptoms. She can be discharge once her IV meds are completed. RN was notified. Medication Administration(s) Medication Administration History Discontinued Medications Adenosine (Adenosine Inj 3 Mg/Ml Vial) 6 mg IVP X1 ONE Stop: 03/14/25 14:15 Last Admin: 03/14/25 14:20 Dose: 6 mg Documented By: SANDRINE Comments: GIVEN BY ALEC PINEDA AND DR. RAMON ZIMMER RN AT BEDSIDE Adenosine (Adenosine Inj 3 Mg/Ml Vial) 12 mg IVP X1 ONE Stop: 03/14/25 14:19 Last Admin: 03/14/25 14:47 Dose: Not Given Documented By: SANDRINE Non-Admin Reason: Cancelled by Provider Sodium Chloride (Ns) 1,000 mls @ 999 mls/hr IV .Q1H1M ONE Stop: 03/14/25 15:31 Last Admin: 03/14/25 14:43 Dose: Not Given Documented By: SANDRINE Non-Admin Reason: Duplicate Medication on eMAR Sodium Chloride (Ns) 1,000 mls @ 999 mls/hr IV .Q1H1M ONE Stop: 03/14/25 15:32 Last Admin: 03/14/25 14:46 Dose: 999 mls/hr Documented By: SANDRINE Magnesium Sulfate (Magnesium Sulfate Ivpb) 2 gm in 50 mls @ 25 mls/hr IV X1 ONE Stop: 03/14/25 17:02 Last Admin: 03/14/25 15:45 Dose: 25 mls/hr Documented By: DARYL Sodium Chloride (Ns) 1,000 mls @ 999 mls/hr IV .Q1H1M ONE Stop: 03/14/25 16:09 Last Admin: 03/14/25 15:45 Dose: 999 mls/hr Documented By: DARYL Lidocaine (Lidocaine 5% 1 Patch) 1 patch TOP X1 ONE Stop: 03/14/25 16:02 Diagnosis Differential dx and/or dx ruled out: This patient is a 59-year-old female with past medical history of atrial fibrillation was on amiodarone, hypertension, status post total thyroidectomy due to stage I thyroid cancer presented to the ER with chief complaint of dizziness associated with supraventricular tachycardia heart rate in 160s. She denied any chest pain, shortness of breath, abdominal pain, nausea, vomiting, fever chills, burning or dysuria. Patient is following Dr. Thompson, border measurer and cutter as outpatient. She also follows Dr. Cortes for heart rhythm analysis. Patient had recently undergone total thyroidectomy status post stage I thyroid cancer and is on levothyroxine and is following with Dr. Mcneal, surgeon as outpatient. Patient is currently on tapering dose of levothyroxine. Patient is following up Dr. Hamilton, oncologist post total thyroidectomy performed on 01/27/25 due to multifocal right and left papillary thyroid carcinoma. Per chart seen by Dr Hamilton on 02/23/25 Patient is getting low dosage 30 MCI for ablation and total body iodine scan. She was advised to take half strength Synthroid for the next 4 weeks followed by no thyroid medications or seafood prior to anticipated radioiodine. Initial EKG showed supraventricular tachycardia rate 160. Post administration of adenosine EKG showed sinus rhythm with ventricular rate 62 QTc [address]-T changes. Differential diagnoses include SVT, dizziness, A-fib Pre-administration of adenosine vitals showed blood pressure 92/71. Post administration adenosine vitals showed blood pressure 114/79 dropped to 90/70 therefore 1 L bag of fluid was given. Patient was given 6 mg adenosine x 1 along with 1 L bolus of NS x 1. Pacer pads were placed before administration of adenosine.She felt alittle tightness over her chest after adenosine but was doing fine. 15:03 CBC showed white count 13.7, hemoglobin 11.1, platelet count 232. Chemistry panel showed sodium 143, potassium 4.2, chloride 110. Bicarb 22.9. BUN 12 and creatinine 0.9. Magnesium 1.9. Troponin I was negative less than 0.020. BNP is pending. TSH 32.14 and free T4 0.73. On reevaluation, patient's blood pressure was soft with MAP of 65 therefore was given 1 L additional bag of normal saline and 2 g of magnesium. 16: 00 Another EKG was performed to evaluate patient's rhythm.EKG showed sinus bradycardia with first degree AV blockade.Qtc 434 Vitals showed Heart rate around 51 Bpm with sinus rhythm. She had mild backpain and was giving lidocaine patch. She denied any chest discomfort or shortness of breath. Patient can be safely discharged after completion of IV magnesium and fluid resuscitation. She was stable at the time of discharge. Her thyroid functions were consistent with hypothyroidism and patient is already following her primary care doctor and oncologist was keeping a close follow-up on her TFTs and was advised to follow-up with them. She was walked around the hallway to evaluate for dizziness and any other symptoms. She can be discharge once her IV meds are completed. RN was notified.
[2025-03-14 14:20] VITALS: BP 101/75; PULSE 157
[2025-03-14] MEDS: ADENOSINE INJ 3 MG/ML VIAL 6 MG IVP (14:20)
--- NOTE | 2025-03-14 14:20 | PC.NURSE ---
Patient placed on pacer pads. Tara PINEDA, Lata PINEDA, and Dr. Polanco at bedside to administer adenosine 6mg.
[2025-03-14 14:26] VITALS: BP 114/79; PULSE 67; RESP 15; O2SAT 99
[2025-03-14 14:28] LABS: Lactate (Lactic Acid) 2.1 mMol/L (0.4-2.0)
[2025-03-14 14:32] LABS: Basophils # (Auto) 0.1 Thou/mm3 (0.0-0.2); Basophils % (Auto) 1 % (0-2.5); Eosinophils # (Auto) 0.1 Thou/mm3 (0.0-0.5); Eosinophils % (Auto) 0 % (0-10); Hemoglobin 11.1 g/dL (12.0-16.0); Immature Granulocytes % (Auto) 1 % (0-0); Immature Granulocytes Auto 0.08 Thou/mm3 (0.00-0.00); Lymphocytes # (Auto) 3.1 Thou/mm3 (1.0-4.8); Lymphocytes % (Auto) 22 % (10-50); Mean Corpuscular HGB Conc 33.6 g/dl (31.0-37.0); Mean Corpuscular Hemoglobin 20.5 pg (25.0-35.0); Mean Corpuscular Volume 61 fL (80-100); Monocytes # (Auto) 0.7 Thou/mm3 (0.0-0.8); Monocytes % (Auto) 5 % (0-12); Neutrophils # (Auto) 9.8 Thou/mm3 (1.8-7.7); Neutrophils % (Auto) 71 % (37-80); Nucleated Red Blood Cell # 0.17 Thou/mm3 (0.00-0.00); Nucleated Red Blood Cell % 1 /100 WBC (0); Platelet Count 232 Thou/mm3 (140-440); RDW Standard Deviation 35.3 fL (36.4-46.3); Red Blood Count 5.42 Miln/mm3 (4.00-5.20); White Blood Count 13.7 Thou/mm3 (3.6-11.0)
--- NOTE | 2025-03-14 14:41 | PC.NURSE ---
Repeat EKG completed. Pt sinus rhythm at 64 BPM. Pt feels better however states she has chest pressure 2/10. Dr. Hollingsworthiq aware.
[2025-03-14 14:45] LABS: Path Review Blood Smear Sent to Pathologist
[2025-03-14] MEDS: SODIUM CHLORIDE 0.9% 1000 ML 1,000 ML 999 ML IV ×2 (14:46→15:45)
[2025-03-14 14:52] LABS: Alanine Aminotransferase 15 U/L (10-49); Albumin, Serum 4.5 gm/dL (3.5-5.0); Alkaline Phosphatase 100 U/L (46-116); Anion Gap 10 (7-16); Aspartate Amino Transferase 17 U/L (0-34); BUN/Creatinine Ratio 13 Ratio (12-20); Bilirubin,Total 0.8 mg/dL (0.3-1.2); Blood Urea Nitrogen 12 mg/dL (9-23); Calcium 8.9 mg/dL (8.3-10.6); Calcium (Corrected) 8.9 mg/dL (8.5-10.1); Carbon Dioxide 22.9 mMol/L (20.0-31.0); Chloride 110 mMol/L (98-107); Creatinine (Component) 0.9 mg/dL (0.6-1.3); Estimated Creatinine Clearance 79.3 mL/min (>60); Free T4 (Free Thyroxine) 0.73 ng/dL (0.89-1.76); Globulin 2.2 gm/dL (2.3-3.5); Glucose 132 mg/dL (74-106); Lipase 46 U/L (12-53); Magnesium 1.9 mg/dL (1.6-2.6); Osmolality,Calculated 286 (275-295); Potassium 4.2 mMol/L (3.4-5.1); Sodium 143 mMol/L (136-145); Thyroid Stimulating Hormone 32.14 uIU/mL (0.55-4.78); Total Protein 6.7 gm/dL (5.7-8.2); Troponin I < 0.020 ng/mL (0.0-0.045); eGFR > 60 See Note
[2025-03-14 15:02] LABS: B-Type Natriuretic Peptide 198 pg/mL (0-100)
[2025-03-14 15:33] VITALS: BP 106/69; PULSE 51; RESP 17; TEMP 36.5; O2SAT 100
[2025-03-14] MEDS: Magnesium Sulfate 2 GM Ivpb 2 GM/50 ML BAG IV (15:45)
--- NOTE | 2025-03-14 16:00 | EKG_ITS ---
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
[2025-03-14 17:25] LABS: Reflex Lactate? Y
[2025-03-14 18:09] VITALS: BP 133/78; PULSE 50; RESP 15; TEMP 36.6; O2SAT 100
[2025-03-14 18:30] VITALS: BP 110/80; PULSE 66; RESP 19; TEMP 36.4; O2SAT 98
== END 2025-03-14 18:38 | disposition home or self-care (01) ==
PROVIDERS: Emergency Provider Emergency Medicine; PCP Physician Assistant
DX: I47.10 Supraventricular tachycardia, unspecified (principal); I10 Essential (primary) hypertension; I48.91 Unspecified atrial fibrillation; Z85.850 Personal history of malignant neoplasm of thyroid; Z90.89 Acquired absence of other organs; Z79.890 Hormone replacement therapy
CPT/HCPCS: 36415; 71045; 80053; 80307; 81001; 83605; 83690; 83735; 83880; 84439; 84443; 84484; 85025; 93005; 96361; 96365; 96366; 96375; 99284; J0153; J3475; J7030

== ENCOUNTER 2025-03-15 12:19 | Emergency (ER) | payer MEDICAID, SELFPAY ==
[2025-03-15 12:20] VITALS: BP 109/72; PULSE 148; RESP 18; TEMP 36.4; O2SAT 97
--- NOTE | 2025-03-15 12:29 | EKG_ITS ---
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
[2025-03-15 12:47] VITALS: BP 109/72; PULSE 143
[2025-03-15] MEDS: ADENOSINE INJ 3 MG/ML VIAL 6 MG IVP (12:47)
[2025-03-15 12:50] VITALS: BP 107/74; PULSE 60; RESP 16; O2SAT 98
--- NOTE | 2025-03-15 13:38 | PD.EDARRY ---
ED Arrhythmia Palp. RME/HPI General Chief Complaint: Chest Pain Stated Complaint: PATIENT IN SVT SEEN ER YESTERDAY FOR SAME Time Seen by Provider: 03/15/25 12:32 Arrival date/time: 03/15/25 12:19 RME / HPI RME / HPI narrative: The patient is a 59-year-old female with significant past medical history of A-fib s/p ablation, hypertension, s/p thyroidectomy 2/2 stage I thyroid cancer presented to ED with chief complaint of dizziness and palpitation for about 30 minutes. She visited yesterday for similar complaints and was found to have SVT and was treated with adenosine 6 mg IV x 1. She denied any headache, lightheadedness, chest pain, SOB, abdominal pain, any bowel or bladder symptoms, nausea or vomiting, fever or chills. Related Data Home Medications ?Medication ?Instructions ?Recorded ?Confirmed amiodarone 200 mg tablet 200 mg PO QDAY 07/06/24 07/06/24 folic acid 1 mg tablet 1 mg PO QDAY 07/06/24 07/06/24 valsartan 80 mg tablet 80 mg PO QDAY 07/06/24 07/06/24 apixaban 5 mg tablet (Eliquis) 5 mg PO BID 09/13/24 01/24/25 Held on 01/27/25. Instructions: Resume on 01/31/25. folic acid 1 mg tablet 1 mg PO DAILY 09/13/24 01/24/25 valsartan 80 mg tablet 80 mg PO DAILY 09/13/24 01/27/25 Previous Rx's ?Medication ?Instructions ?Recorded hydrocodone 5 mg-acetaminophen 325 1 tab PO BID PRN pain #10 tabs 12/18/24 mg tablet calcium carbonate (Calcium 500) 500 mg PO BID #30 tabs 01/27/25 docusate sodium 100 mg capsule 100 mg PO BID #40 caps 01/27/25 (Colace) hydrocodone 5 mg-acetaminophen 325 1 tab PO Q6H PRN pain (scale score 01/27/25 mg tablet 7-10) #15 tabs ibuprofen 600 mg tablet 600 mg PO Q8H PRN pain (scale 01/27/25 score 4-6) #15 tabs levothyroxine 100 mcg tablet 100 mcg PO QDAY #30 tabs 01/27/25 (Synthroid) Allergies Allergy/AdvReac Type Severity Reaction Status Date / Time No Known Allergies Allergy Verified 03/15/25 12:22 Review of Systems Review of Systems Systems Reviewed: All systems reviewed, normal except as documented (Above) Past Medical History Past Medical History NEUROLOGIC: Negative Neurological Disorders CARDIAC: Positive Cardiac Disorders, Atrial Fibrillation and Hypertension; Negative Congestive Heart Failure RESPIRATORY: Negative Chronic Obstructive Pulmonary Disease (COPD) GASTROINTESTINAL: Negative Gastrointestinal Disorders GENITOURINARY: Negative Genitourinary Disorders or Renal Disease REPRODUCTIVE: Positive Previous Pregnancies MUSCULOSKELETAL: Negative Musculoskeletal Disorders ENT: Positive Cataracts ENDOCRINE: Positive Endocrine Disorders (Thyroid); Negative Diabetes Mellitus Type 1 or Diabetes Mellitus Type 2 HEMATOLOGIC: Positive Anemia (microcytic anemia, sees Dr Augustine); Negative Blood Disorders OTHER HISTORY: Positive Chicken Pox; Negative Hospitalization, Autoimmune Disease, Blood Transfusions, Anesthesia Reactions or Cancer Family History FAMILY HISTORY: Positive Family Cancer; Negative Family Psychiatric Problems, Family Respiratory Disorders, Family Cardiac Disorders, Family Gastrointestinal Problems, Family Surgery or Family Anesthesia Reaction Surgical History SURGICAL: Positive Tonsillectomy Social History SMOKING STATUS: Never smoker ED Exam Narrative Physical exam: General: No acute distress, Alert and Oriented x 3 HEENT: Moist mucous membranes, oropharynx clear Neck: Supple, No masses, No JVD CVS: Tachycardic, No murmurs, rubs or gallops Lungs: Clear to auscultation with no accessory use, no wheeze no rhonchi Abd: Soft, NT/ND, +BS, no organomegaly Ext: No edema, warm and well perfused Skin: No rash Psych: Anxious Course Quality Measures none Orders Category Date Time Status EKG (ED ONLY) *Do not use* NOW Care 03/15/25 12:29 Completed EKG (ED Only) Stat Exams 03/15/25 12:29 Draft Adenosine 6mg Inj [Adenocard Inj] Med 03/15/25 12:41 Discontinued 6 mg IVP X1 ONE Vital Signs Vital signs: Vital Signs Temperature 97.6 F 03/15/25 12:20 Pulse Rate 148 H 03/15/25 12:20 Respiratory Rate 18 03/15/25 12:20 Blood Pressure 109/72 03/15/25 12:20 Pulse Oximetry (%) 97 03/15/25 12:20 Oxygen Delivery Method Room Air 03/15/25 12:20 Arrhythmia/Palpitations MDM Narrative MDM Narrative:: The patient is a 59-year-old female with significant past medical history of A-fib s/p ablation, hypertension, s/p thyroidectomy 2/2 stage I thyroid cancer presented to ED with chief complaint of dizziness and palpitation for about 30 minutes. She visited yesterday for similar complaints and was found to have SVT and was treated with adenosine 6 mg IV x 1. She denied any headache, lightheadedness, chest pain, SOB, abdominal pain, any bowel or bladder symptoms, nausea or vomiting, fever or chills. vilma see attestation Patient data External records reviewed:: [facility] previous records Clinical information provided by:: patient and spouse Social determinants that could affect healthcare access:: none Patient has the following chronic illnesses:: See above How is presenting disease/condition affected by chronic disease/condition?: caused by Evaluation data The following diagnostics were reviewed and interpreted by me:: EKG tracing(s) Lab and/or radiology exams considered but not ordered:: None Interpretation Summary: SVT with ventricular rate of 148 Medications / Prescriptions Medications or Prescriptions considered but not ordered:: None Medication administrations:: Medication Administration History Discontinued Medications Adenosine (Adenosine Inj 3 Mg/Ml Vial) 6 mg IVP X1 ONE Stop: 03/15/25 12:42 Last Admin: 03/15/25 12:47 Dose: 6 mg Documented By: ER Consultations Consultation(s) initiated? (list below): Yes Diagnosis Differential diagnosis arrhythmia/palpitations: palpitations, anxiety, sinus tachycardia, artial fibrillation and supraventricular tachycardia Most likely diagnosis given after review of the tests above:: SVT Admission Indicated Admission indicated?: not indicated Admission Request Was there a request for admission?: No Disposition Plan Disposition Plan: Discharge Discharge Attestation Discharge Attestation: The patient and all family members were given an opportunity to ask questions and understood the discharge instructions. Discharge instructions specifically effects, indications for sooner follow up or return to the emergency department, and the expected course of current diagnosis. Patient condition: Stable Critical Care Time Critical Care Time Critical Care Time: Yes Total Critical Care Time (min.): 45 Attestation: The high probability of sudden, clinically significant deterioration in the patient?s condition required the highest level of my preparedness to intervene urgently. The services I provided to this patient were to treat and/or prevent clinically significant deterioration. Services included the following: chart data review, reviewing nursing notes and/or old charts, documentation time, railroad design consultant collaboration regarding findings and treatment options, medication orders and management, direct patient care, vital sign assessments and ordering, interpreting and reviewing diagnostic studies and lab tests. Aggregate critical care time includes only time during which I was engaged in work directly related to the patient?s care, as described above, whether at bedside or elsewhere in the Emergency Department. It did not include time spent performing other reported procedures or the services of residents, students, nurses or physician assistants. Discharge Plan Plan Patient Disposition: HOME (Self Care) Prescriptions/Referrals Prescriptions/Med Rec: No Action hydrocodone-acetaminophen 5-325 mg tablet 1 tab PO BID MDD 10mg PRN (Reason: pain) Qty: 10 0RF levothyroxine [Synthroid] 100 mcg tablet 100 mcg PO QDAY Qty: 30 3RF docusate sodium [Colace] 100 mg capsule 100 mg PO BID Qty: 40 0RF hydrocodone-acetaminophen 5-325 mg tablet 1 tab PO Q6H MDD 4 PRN (Reason: pain (scale score 7-10)) Qty: 15 0RF ibuprofen 600 mg tablet 600 mg PO Q8H PRN (Reason: pain (scale score 4-6)) Qty: 15 0RF calcium carbonate [Calcium 500] 500 mg calcium (1,250 mg) tablet,chewable 500 mg PO BID Qty: 30 0RF amiodarone 200 mg Tablet 200 mg PO QDAY valsartan 80 mg Tablet 80 mg PO QDAY folic acid 1 mg Tablet 1 mg PO QDAY valsartan 80 mg tablet 80 mg PO DAILY Patient Comments: TAKE ONE TABLET BY MOUTH EVERY DAY FOR BLOOD PRESSURE folic acid 1 mg tablet 1 mg PO DAILY Patient Comments: TAKE ONE TABLET BY MOUTH EVERY DAY VITAMIN Eliquis 5 mg tablet 5 mg PO BID Patient Comments: TAKE ONE TABLET BY MOUTH TWICE DAILY FOR THE HEART Referrals: Zia Cortes MD [Referring Provider] - In 1 week Problem List Clinical Impression: Supraventricular tachycardia Patient/Caregiver Discharge Instructions Discharge Activity: activity as tolerated Education Materials: Understanding Supraventricular ... Additional Instructions: Please follow-up with your PCP within 1 week of discharge. 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 Cortes within 1 week of discharge. You have been started on: -Amiodarone 200 Mg daily, as recommended by Dr. Cortes Continue taking all other medicines as prescribed -Recommended to return back to emergency department if your symptoms persists or worsens Print Language: Welsh Stand Alone Forms: [employer] Award Info., Patient Portal Info Letter MD Attestation Attestation I, Bruce Richardson MD, have reviewed the history, exam, and assessment of the patient. I have evaluated the patient independently and agree with the plan of care documented by [ ]. All diagnostic studies were reviewed and discussed. I confirm the diagnosis as documented by the Resident. I was present during the Medical Decision Making for this patient. The patient's plan of care was created between myself and the Resident and consistent with our discussion of the patient's case. Patient is well-known this is her third visit last couple months for recurring SVT. Today she is in SVT again she responded to 6 of adenosine along with she took 400 mg of amiodarone prior to arrival and she remained in sinus sinus rhythm post chemical cardioversion. Dr. Paul did contact Dr. Martinez in [place] and agreed with the plan to continue amiodarone and they will schedule appointment for follow-up since the patient has been having bouts of SVT patient was advised and return. Note of talked with his family multiple times who are recent immigrants from [place]
[2025-03-15 14:30] VITALS: BP 114/72; PULSE 60; RESP 18; TEMP 36.5; O2SAT 99
== END 2025-03-15 14:40 | disposition home or self-care (01) ==
LOC: SERX 14:45
PROVIDERS: Emergency Provider Emergency Medicine
DX: I47.10 Supraventricular tachycardia, unspecified (principal); I48.91 Unspecified atrial fibrillation; I10 Essential (primary) hypertension; Z90.89 Acquired absence of other organs; Z85.850 Personal history of malignant neoplasm of thyroid
CPT/HCPCS: 96374; 99284; J0153

== ENCOUNTER 2025-04-11 08:09 | Outpatient (RCR) | payer MEDICAID, SELFPAY ==
--- NOTE | 2025-04-11 09:19 | CTCFLWUP_ITS ---
[facility] [address] [place], [place] [address] FOLLOW-UP NOTE Date: 04/11/2025 MR#: [id number] Name: GRICELDA CRAMER : 1965 Dx: [id number] Malignant neoplasm of thyroid gland Patient followed instructions and has been off thyroid medication for the past 2 weeks while taking half strength for the prior 2. Patient's TSH is very high at 131. While seeing patient today patient was noted to be tachycardic with rate approaching 150. Patient appeared very tired. Patient was transferred to emergency room. If patient is stabilized cardiac noble told patient and about resuming thyroid at half strength level and being off for 1 week then checking TSH and doing the procedure about 3 weeks from now. Electronically signed by: Alec Hamilton M.D. 04/11/2025 9:17 AM
== END 2025-04-24 23:59 | disposition home or self-care (01) ==
LOC: SCTC 08:09
PROVIDERS: PCP Physician Assistant; Referring Provider Radiology Therapeutic Radiology; Visit Provider Radiology Therapeutic Radiology
DX: C73 Malignant neoplasm of thyroid gland (principal); R00.0 Tachycardia, unspecified
CPT/HCPCS: 99213; G0463

== ENCOUNTER 2025-04-11 09:21 | Inpatient (IN) | payer MEDICAID, SELFPAY ==
[2025-04-11] VITALS (59 sets, daily range): BP systolic 69–118; BP diastolic 47–96; PULSE 30–145; RESP 10–97; TEMP 35.9–36.7; O2SAT 91–100
--- NOTE | 2025-04-11 09:35 | EKG_ITS ---
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
--- NOTE | 2025-04-11 09:53 | XR_ITS ---
Examination: AP chest single view Technique one AP portable upright chest single view Date and time: April 11, 2025 1044 hours Comparison March 14, 2025 INDICATIONS: Coughing chest pain today. FINDINGS: Normal heart size Lungs are clear. The osseous structures are intact IMPRESSION: No active disease
--- NOTE | 2025-04-11 09:57 | PD.EDARRY ---
ED Arrhythmia Palp. RME/HPI General Chief Complaint: Arrhythmia/Palpitations Stated Complaint: SENT BY [facility] FOR HIGH PULSE; APICAL PULSE 147 Time Seen by Provider: 04/11/25 09:37 Arrival date/time: 04/11/25 09:21 Limitations: no limitations RME / HPI RME / HPI narrative: 59 year old female with history of atrial fibrillation, status post ablation performed by Dr. Cortes, hypertension, status post total thyroidectomy 01/2025 secondary to stage I thyroid cancer presents to the ED sent by [facility] for tachycardia. Patient reports he had an appointment today with oncologist Dr. Hamilton for a thyroid procedure. While in office, her heart rate was in the 140s. Sent here for further evaluation and treatment. Patient has no other complaints. Denies fevers, chills, chest pain, cough, shortness of breath, n/v. Current medications include Eliquis, Volsartan, Levothyroxine, and Folic acid. Related Data Home Medications ?Medication ?Instructions ?Recorded ?Confirmed amiodarone 200 mg tablet 200 mg PO QDAY 07/06/24 07/06/24 folic acid 1 mg tablet 1 mg PO QDAY 07/06/24 07/06/24 valsartan 80 mg tablet 80 mg PO QDAY 07/06/24 07/06/24 apixaban 5 mg tablet (Eliquis) 5 mg PO BID 09/13/24 01/24/25 Held on 01/27/25. Instructions: Resume on 01/31/25. folic acid 1 mg tablet 1 mg PO DAILY 09/13/24 01/24/25 valsartan 80 mg tablet 80 mg PO DAILY 09/13/24 01/27/25 Previous Rx's ?Medication ?Instructions ?Recorded hydrocodone 5 mg-acetaminophen 325 1 tab PO BID PRN pain #10 tabs 12/18/24 mg tablet calcium carbonate (Calcium 500) 500 mg PO BID #30 tabs 01/27/25 docusate sodium 100 mg capsule 100 mg PO BID #40 caps 01/27/25 (Colace) hydrocodone 5 mg-acetaminophen 325 1 tab PO Q6H PRN pain (scale score 01/27/25 mg tablet 7-10) #15 tabs ibuprofen 600 mg tablet 600 mg PO Q8H PRN pain (scale 01/27/25 score 4-6) #15 tabs levothyroxine 100 mcg tablet 100 mcg PO QDAY #30 tabs 01/27/25 (Synthroid) Allergies Allergy/AdvReac Type Severity Reaction Status Date / Time No Known Allergies Allergy Verified 04/11/25 09:27 Review of Systems Review of Systems Systems Reviewed: All systems reviewed, normal except as documented Past Medical History Past Medical History CARDIAC: Positive Cardiac Disorders, Cardiac Arrhythmia, Atrial Fibrillation and Hypertension REPRODUCTIVE: Positive Previous Pregnancies MUSCULOSKELETAL: Positive Arthritis ENT: Positive Cataracts ENDOCRINE: Positive Endocrine Disorders HEMATOLOGIC: Positive Anemia OTHER HISTORY: Positive Chicken Pox Family History FAMILY HISTORY: Positive Family Cancer Surgical History SURGICAL: Positive Tonsillectomy Social History SMOKING STATUS: Current every day smoker SUBSTANCE USE: does not use ED Exam General Limitations: Present no limitations General appearance: Present alert and anxious Head Head exam: Present atraumatic, normocephalic and normal inspection Eye Eye exam: Present normal appearance, PERRL and EOMI ENT ENT exam: Present normal exam, normal oropharynx and mucous membranes moist Neck Neck exam: Present normal inspection, full ROM and trachea midline Chest Chest inspection: Present normal inspection and symmetric chest wall rise Respiratory Respiratory exam: Present normal lung sounds bilaterally Cardiovascular Cardiovascular exam: Present normal heart sounds and other (Tachycardic, regular rhythm, no murmurs ) Abdominal Exam Abdominal exam: Present soft and normal bowel sounds Extremities Exam Extremities exam: Present normal inspection and full ROM Back Exam Back exam: Present normal inspection and full ROM Neurological Exam Neurological exam: Present alert, oriented X3 and CN II-XII intact Psychiatric Psychiatric exam: Present anxious Skin Skin exam: Present warm, dry, intact and normal color Course Quality Measures none Orders Category Date Time Status Power Transformer Repair Supervisor NOW Care 04/11/25 09:35 Active Power Transformer Repair Supervisor NOW Care 04/11/25 09:53 Active Continuous Pulse Oximetry NOW Care 04/11/25 09:53 Active EKG (ED ONLY) *Do not use* NOW Care 04/11/25 09:35 Completed Insert IV NOW Care 04/11/25 09:35 Active Insert IV NOW Care 04/11/25 09:53 Active EKG (ED Only) Stat Exams 04/11/25 09:35 Draft XR chest 1V portable Stat Exams 04/11/25 09:53 Ordered CBC Stat Lab 04/11/25 09:53 Ordered Comprehensive Metabolic Panel Stat Lab 04/11/25 09:53 Ordered Partial Thromboplastin Time Stat Lab 04/11/25 09:53 Ordered Prothrombin Time with INR Stat Lab 04/11/25 09:53 Ordered Troponin I Stat Lab 04/11/25 09:53 Ordered Urinalysis Stat Lab 04/11/25 09:53 Ordered (Bag #2)* 1 mg/minute for 6 hours x1 Med 04/11/25 09:54 Ordered Amiodarone 360 mg Ivpb [Nexterone Ivpb] 360 mg in 200 ml IV 33.333 mls/hr Amiodarone Inj [Cordarone Inj] 150 mg Med 04/11/25 09:54 Ordered Dextrose 5%-Water [D5w] 100 ml IV X1 Sodium Chloride 0.9% 1000 ml [Ns] 1,000 ml Med 04/11/25 09:53 Ordered IV 100 mls/hr Oxygen Delivery NOW RT 04/11/25 09:53 Active Vital Signs Vital signs: Vital Signs Temperature 97.8 F 04/11/25 09:32 Pulse Rate 145 H 04/11/25 09:32 Respiratory Rate 20 04/11/25 09:32 Blood Pressure 69/54 L 04/11/25 09:32 Pulse Oximetry (%) 98 04/11/25 09:32 Oxygen Delivery Method Room Air 04/11/25 09:32 Arrhythmia/Palpitations MDM Narrative MDM Narrative:: IAmy am scribing for and in the presence of Dr. Chun. Patient data External records reviewed:: [facility] previous records (I reviewed Dr. Hamilton's note from today ) Clinical information provided by:: patient Social determinants that could affect healthcare access:: none Patient has the following chronic illnesses:: atrial fibrillation, status post ablation performed by Dr. Cortes, hypertension, status post total thyroidectomy 01/2025 secondary to stage I thyroid cancer How is presenting disease/condition affected by chronic disease/condition?: exacerbated by Evaluation data The following diagnostics were reviewed and interpreted by me:: lab results, radiology exam(s) and EKG tracing(s) (04/11/2025 @ 09:38. Atrial flutter with RVR, rate 141, left axis deviation, no STEMI. ) Lab and/or radiology exams considered but not ordered:: None Interpretation Summary: Ordering Physician: Dean Chun MD Date of Service: 04/11/25 Procedure(s): XR chest 1V portable Accession Number(s): [id number] cc: Dean Chun MD; Oneal Gomez MD; NO PRIMARY/FAMILY,PHYSICIAN~ Examination: AP chest single view Technique one AP portable upright chest single view Date and time: April 11, 2025 1044 hours Comparison March 14, 2025 INDICATIONS: Coughing chest pain today. FINDINGS: Normal heart size Lungs are clear. The osseous structures are intact IMPRESSION: No active disease Dictated By: Oneal Gomez MD Signed By: <Electronically signed by Oneal Gomez MD in OV> 04/11/25 1131 Medications / Prescriptions Medications or Prescriptions considered but not ordered:: None Medication administrations:: See above Consultations Consultation(s) initiated? (list below): Yes Consultation #1 (Physician, Specialty, Details): I spoke with correctional security officer Dr. Goode. Discussed patients PMHx, HPI, ED course, exam findings, labs results. He agrees to consult. Time: 12:02 Consultation #2 (Physician, Specialty, Details): I spoke with hospitalist Dr. Caceres. Discussed patients PMHx, HPI, ED course, exam findings, labs, and radiology results. The hospitalist agree to accept the patient for admission. Time: 12:12 Diagnosis Differential diagnosis arrhythmia/palpitations: palpitations, anxiety, sinus tachycardia, artial fibrillation, artial flutter, supraventricular tachycardia, ventricular tachycardia and WPW Most likely diagnosis given after review of the tests above:: Rapid atrial flutter Hypothyroidism Thyroid cancer Admission Indicated Admission indicated?: indicated Admission Request Was there a request for admission?: Yes Admission Attestation Admission request attestation: Discussed case with [] from Hospitalist service regarding admission. Discussed patients ED course, exam findings, labs, and radiology results. The Hospitalist [agrees,declines] to accept the patient for admission. Disposition Plan Disposition Plan: Discharge Discharge Attestation Discharge Attestation: The patient and all family members were given an opportunity to ask questions and understood the discharge instructions. Discharge instructions specifically effects, indications for sooner follow up or return to the emergency department, and the expected course of current diagnosis. Patient condition: Stable Critical Care Time Critical Care Time Critical Care Time: Yes Total Critical Care Time (min.): 60 Attestation: The high probability of sudden, clinically significant deterioration in the patient's condition required the highest level of my preparedness to intervene urgently. The services I provided to this patient were to treat and/or prevent clinically significant deterioration. Services included the following: chart data review, reviewing nursing notes and/or old charts, documentation time, building energy consultant collaboration regarding findings and treatment options, medication orders and management, direct patient care, vital sign assessments and ordering, interpreting and reviewing diagnostic studies and lab tests. Aggregate critical care time includes only time during which I was engaged in work directly related to the patient's care, as described above, whether at bedside or elsewhere in the Emergency Department. It did not include time spent performing other reported procedures or the services of residents, students, nurses or physician assistants. Discharge Plan Plan Patient Disposition: Admit Acute Care w/in Hospital Prescriptions/Referrals Prescriptions/Med Rec: No Action hydrocodone-acetaminophen 5-325 mg tablet 1 tab PO BID MDD 10mg PRN (Reason: pain) Qty: 10 0RF levothyroxine [Synthroid] 100 mcg tablet 100 mcg PO QDAY Qty: 30 3RF docusate sodium [Colace] 100 mg capsule 100 mg PO BID Qty: 40 0RF hydrocodone-acetaminophen 5-325 mg tablet 1 tab PO Q6H MDD 4 PRN (Reason: pain (scale score 7-10)) Qty: 15 0RF ibuprofen 600 mg tablet 600 mg PO Q8H PRN (Reason: pain (scale score 4-6)) Qty: 15 0RF calcium carbonate [Calcium 500] 500 mg calcium (1,250 mg) tablet,chewable 500 mg PO BID Qty: 30 0RF amiodarone 200 mg Tablet 200 mg PO QDAY valsartan 80 mg Tablet 80 mg PO QDAY folic acid 1 mg Tablet 1 mg PO QDAY valsartan 80 mg tablet 80 mg PO DAILY Patient Comments: TAKE ONE TABLET BY MOUTH EVERY DAY FOR BLOOD PRESSURE folic acid 1 mg tablet 1 mg PO DAILY Patient Comments: TAKE ONE TABLET BY MOUTH EVERY DAY VITAMIN Eliquis 5 mg tablet 5 mg PO BID Patient Comments: TAKE ONE TABLET BY MOUTH TWICE DAILY FOR THE HEART Referrals: No Primary/Family,Physician [Primary Care Provider] - In 1 week Problem List Clinical Impression: Atrial flutter with rapid ventricular response, Thyroid cancer, Hypothyroidism Patient/Caregiver Discharge Instructions Print Language: Serbian Stand Alone Forms: [employer] Award Info., Patient Portal Info Letter
[2025-04-11] MEDS: AMIODARONE 150 MG IVPB 150 MG/100 ML BAG 582.524 MG IV (10:09)
[2025-04-11] MEDS: SODIUM CHLORIDE 0.9% 1000 ML 1,000 ML 100 ML IV (10:31)
[2025-04-11 10:34] LABS: Basophils # (Auto) 0.1 Thou/mm3 (0.0-0.2); Basophils % (Auto) 1 % (0-2.5); Eosinophils # (Auto) 0.1 Thou/mm3 (0.0-0.5); Eosinophils % (Auto) 1 % (0-10); Hematocrit 34.3 % (36.0-46.0); Hemoglobin 11.5 g/dL (12.0-16.0); Immature Granulocytes % (Auto) 1 % (0-0); Immature Granulocytes Auto 0.12 Thou/mm3 (0.00-0.00); Lymphocytes # (Auto) 4.5 Thou/mm3 (1.0-4.8); Lymphocytes % (Auto) 28 % (10-50); Mean Corpuscular HGB Conc 33.5 g/dl (31.0-37.0); Mean Corpuscular Hemoglobin 20.5 pg (25.0-35.0); Mean Corpuscular Volume 61 fL (80-100); Monocytes # (Auto) 0.7 Thou/mm3 (0.0-0.8); Monocytes % (Auto) 5 % (0-12); Neutrophils # (Auto) 10.2 Thou/mm3 (1.8-7.7); Neutrophils % (Auto) 65 % (37-80); Nucleated Red Blood Cell # 0.29 Thou/mm3 (0.00-0.00); Nucleated Red Blood Cell % 2 /100 WBC (0); Platelet Count 258 Thou/mm3 (140-440); RDW Standard Deviation 37.3 fL (36.4-46.3); White Blood Count 15.7 Thou/mm3 (3.6-11.0)
[2025-04-11] MEDS: AMIODARONE 360 MG IVPB 360 MG/200 ML BAG 33.333 MG IV (10:42)
[2025-04-11 10:46] LABS: Partial Thromboplastin Time 33.4 Seconds (22.0-36.0)
[2025-04-11 10:51] LABS: Alanine Aminotransferase 17 U/L (10-49); Albumin, Serum 4.7 gm/dL (3.5-5.0); Alkaline Phosphatase 96 U/L (46-116); Anion Gap 12 (7-16); Aspartate Amino Transferase 24 U/L (0-34); BUN/Creatinine Ratio 16 Ratio (12-20); Bilirubin,Total 0.9 mg/dL (0.3-1.2); Blood Urea Nitrogen 18 mg/dL (9-23); Calcium 9.1 mg/dL (8.3-10.6); Calcium (Corrected) 9.1 mg/dL (8.5-10.1); Chloride 108 mMol/L (98-107); Creatinine (Component) 1.1 mg/dL (0.6-1.3); Estimated Creatinine Clearance 65.7 mL/min (>60); Globulin 2.3 gm/dL (2.3-3.5); Glucose 138 mg/dL (74-106); Osmolality,Calculated 285 (275-295); Potassium 3.9 mMol/L (3.4-5.1); Sodium 141 mMol/L (136-145); Troponin I < 0.020 ng/mL (0.0-0.045); eGFR 58 See Note
[2025-04-11 12:34] LABS: Free T4 (Free Thyroxine) 0.21 ng/dL (0.89-1.76); Thyroid Stimulating Hormone 98.88 uIU/mL (0.55-4.78)
--- NOTE | 2025-04-11 14:12 | EKG_ITS ---
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
--- NOTE | 2025-04-11 14:32 | ESHP_ITS ---
<Statement entered by Regino Boone MD - 04/11/25 23:59> 59 year-old female patient with significant medical history for chronic arrhythmia, A-fib on amiodarone and Eliquis, s/p ablation by Dr. Cortes (July 2024), multifocal papillary thyroid cancer s/p thyroidectomy (December 2024) and hypertension was sent to ED from cancer center after she was found to have heart rate in the 140s. In ED patient was found to be hypotensive with BP 69/54 and heart rate of 145. Troponins were negative and EKG indicated atrial flutter with RVR. In ED patient was started on amiodarone drip which was later held as patient was found to be bradycardic in the 40s. Manager Creative Dr. Goode consulted. I discussed with and supervised the integrated marketing intern physician involved in the care of this patient. Patient assessment and plan was discussed with entire medicine team, including my attending. I agree with the assessment and plan as documented by integrated marketing intern doctor. Patient care was discussed with my attending physician Dr. Morris Boone, PGY-2 Documentation for date of: 04/11/25 HPI History of Present Illness History of present illness: History of Present Illness: This is a 59 year-old female with PMHx of chronic tachyarrhythmia currently on home AMIODARONE and ELIQUIS, s/p atrial ablation X2 (last 07/2024), HTN, multifocal papillary thyroid cancer s/p thyroidectomy 01/27/2025, presenting to the ED with a chief complaint of palpitation. The last episode occurred at 5 AM this morning, she describes feeling uneasy, fatigued, jittery, and agitated; but denies chest pain, shortness of breath, dizziness or lightheadedness. She tried self vagal maneuvers today but episode did not resolve. Evidently, she has longstanding history of tachyarrhythmia (>10 years ago), with recurrent palpitations episodes, some usually resolve with self vagal maneuvers, others required ED and hospital admission for ADENOSINE. Reports having about 2?3 episodes during this month. Previously she was on VERAPAMIL (while she lived in [place]), however diagnosis of thyroid cancer was made when she moved to [place] last year. She follows with Dr. Hamilton, thyroidectomy was performed by Dr. Mcneal on 01/2024. Her plant machinist is Dr. Cortes and she previously underwent ablation x 2 with the last procedure done 07/2024. She has been on AMIODARONE 200 mg daily since with recurrent episode of tachyarrhythmia requiring ED visit. She was seen by Dr. Hamilton (oncology) for scheduled ablation and radioiodine, and she has been off of THYROID hormone in preparation for radioiodine uptake. TSH was 130, appropriate elevated for the thyroid study. However no procedure was done today as she was found to have without HR in 140s. Review shows she was admitted on 08/2024 for A-fib with RVR, NSTEMI type II. Cardiology was consulted at the time, however she converted with AMIODARONE drip, no cardioversion was needed. Currently denies headaches, visual changes, lightheadedness, dizziness, chest pain, shortness of breath, cough, fever, GI or urinary symptoms. Past Medical History: * Chronic tachyarrhythmia, multifocal papillary thyroid cancer, HTN. Past Surgical History: * Total thyroidectomy 01/2024, atrial fibrillation x 2, distant history of cholecystectomy. Medications: * AMIODARONE 200 mg, ELIQUIS 5 mg BID, LEVOTHYROXINE 100 mg, VALSARTAN 80 mg daily. Allergies: * No known allergies Family History: * No significant or relevant family history. Social History: * [id number] smoking history (1/2 pack since 35 years), denies alcohol or drug use. ED Course: * Afebrile, BP 69/54, HR 145, satting upper 90s on room air. * CBC showed WBC 15.7, Hgb 11.5 (around baseline), PLT 258. * Normal coag studies. * CHEM panel significant for CR 1.1 (baseline 0.9), TSH 98.88, free T4 0.21. Potassium 3.9, magnesium 2.0, troponin negative. * EKG read as atrial flutter with RVR, nonspecific ST and T wave abnormalities. * Repeat EKG showed sinus tachycardia with first-degree block, nonspecific ST and T wave abnormalities, however most likely AVNRT. * CXR showed no active disease. ED initiated AMIODARONE gtt., and started NS at at 100 cc. Heart rate sustaining 120s, and appears sinus, BP 99/69. Reason for admission: Tachyarrhythmia, mild DONALD. Cardiology was consulted and has seen the patient, planning on possible ADENOSINE trial. Review of Systems Review of Systems Narrative Review of Systems: 12 point system review negative except for above mentioned. Exam Vital Signs Temp Pulse Resp BP Pulse Ox O2 Del Method 97.5 F 117 H 18 99/71 98 Room Air 04/11/25 12:33 04/11/25 14:22 04/11/25 14:22 04/11/25 13:25 04/11/25 13:25 04/11/25 10:55 Narrative Exam GENERAL * Normal appearing adult female, in mild distress (concerned about HR), satting well on room air. HEENT * NCAT.?HORTENCIA. Oral mucosa is moist. Patent Nares NECK * Supple, nontender, no thyromegaly, no meningismus, no JVD, no step offs CHEST * Tachycardic, regular rhythm, no m/g/r * CTAB, no w/r/r. Symmetrical chest rise. No intercostal subcostal retraction * Atraumatic, nontender, no crepitus, symmetrical expansion. ABDOMEN * Soft, flat, nontender. No guarding/rebound tenderness/masses. * Bowel sounds presents EXTREMITIES * No edema/cyanosis.? SKIN * Warm and dry, no jaundice/rashes. NEUROMUSCULAR * No lumbar or midline, no CVA, no paraspinal muscle spasm or tenderness. * Moves all 4 extremities well, with full ROM and good CSM. * ZELAYA x4, CN II-XII grossly intact. * No focal neurologic deficits. PSYCHIATRY * Normal mood and affect, cooperative, no SI or HI or hallucinations. Results: Labs 04/11/25 10:22 04/11/25 10:22 Labs: Short CBC 04/11/25 Range/Units 10:22 WBC 15.7 H (3.6-11.0) Thou/mm3 Hgb 11.5 L (12.0-16.0) g/dL Hct 34.3 L (36.0-46.0) % Plt Count 258 (140-440) Thou/mm3 BMP 04/11/25 10:22 Sodium 141 Potassium 3.9 Chloride 108 H Carbon Dioxide 21.0 BUN 18 Creatinine 1.1 Glucose 138 H Calcium 9.1 Cardiac Enzymes 04/11/25 Range/Units 10:22 Troponin I < 0.020 (0.0-0.045) ng/mL Liver Function 04/11/25 Range/Units 10:22 Total Bilirubin 0.9 (0.3-1.2) mg/dL AST 24 (0-34) U/L ALT 17 (10-49) U/L Alkaline Phosphatase 96 (46-116) U/L Albumin 4.7 (3.5-5.0) gm/dL Quality Measures Quality Measures none Medications Home Medications and Allergies Home Medications ?Medication ?Instructions ?Recorded ?Confirmed ?Type amiodarone 200 mg tablet 200 mg PO QDAY 07/06/2403/26 History folic acid 1 mg tablet 1 mg PO QDAY 07/06/24 History valsartan 80 mg tablet 80 mg PO QDAY 07/06/2404/11 History apixaban 5 mg tablet (Eliquis) 5 mg PO BID 09/13/24 History Held on 01/27/25. Instructions: Resume on 01/31/25. folic acid 1 mg tablet 1 mg PO DAILY 09/13/2404/11 History valsartan 80 mg tablet 80 mg PO DAILY 09/13/2403/26 History Allergies Allergy/AdvReac Type Severity Reaction Status Date / Time No Known Allergies Allergy Verified 04/11/25 09:27 Visit Medications Acetaminophen (Acetaminophen 325 Mg Tablet) 650 mg PO Q6H PRN PRN Reason: PAIN SCALE 1-3 (mild Stop: 05/11/25 14:15 Acetaminophen (Acetaminophen 325 Mg Tablet) 650 mg PO Q6H PRN PRN Reason: Fever >100.4 Stop: 05/11/25 14:15 Sodium Chloride (Ns) 1,000 mls @ 100 mls/hr IV .Q10H ONE Stop: 04/11/25 19:52 Last Admin: 04/11/25 10:31 Dose: 100 mls/hr Amiodarone HCl/Dextrose (Nexterone Ivpb) 360 mg in 200 mls @ 33.333 mls/hr IV .Q6H ONE Stop: 04/11/25 15:53 Last Admin: 04/11/25 10:42 Dose: 33.333 mls/hr Ondansetron HCl (Ondansetron Inj 2 Mg/Ml Inj 2 Ml) 4 mg IVP Q6H PRN; Protocol PRN Reason: NAUSEA OR VOMITING Stop: 05/11/25 14:15 Pantoprazole Sodium (Pantoprazole Inj 40 Mg Vial) 40 mg IVP QDAY ADÁN Stop: 05/11/25 14:29 Discontinued Medications Amiodarone HCl/Dextrose (Nexterone Ivpb) 150 mg in 100 mls @ 582.524 mls/hr IV X1 ONE Stop: 04/11/25 10:04 Last Infusion: 04/11/25 10:43 Dose: Infused Assessment & Plan Plan This is a 59 year-old female with PMHx of chronic tachyarrhythmia currently on home AMIODARONE and ELIQUIS, s/p atrial ablation X2 (last 07/2024), HTN, multifocal papillary thyroid cancer s/p thyroidectomy 01/27/2025, presenting to the ED with a chief complaint of palpitation. Supraventricular tachycardia Hx tachyarrhythmia with frequent recurrence S/p atrial fibrillation X2 Presenting with acute episode of palpitation that started this morning. Was seen by oncology, Dr. Hamilton this morning for follow-up, with planned radioiodine procedure, however found with HR 140s and recommended hospital visit. She has history of tachyarrhythmia, possible A-fib, now on AMIODARONE 200 mg daily and ELIQUIS. Tachyarrhythmias diagnosed greater than 10 years ago, previously she was on VERAPAMIL. She had ablation x 2, last one in 07/[address] 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 Admission HR 145, BP 69/54, has mild DONALD, troponin was normal. Initial EKG was read as a flutter with RVR, HR 140s, and she was started on AMIODARONE drip and IVF. Repeat EKG showed sinus tachycardia, possible AVNRT. HR sustaining in the 120s and appears sinus. However, later this afternoon, we were notified for bradycardia, HR in 40s. AMIODARONE drip was help. Patient remained sable, no chest pain or sob. She states her HR usually runs in 40s at home. Cardiology on board and planning for ADENOSINE this afternoon if remains tachycardic. ? HOLD AMIODARONE drip for now ? Continue home ELIQUIS 5 mg BID ? Maintain K>4.0 and Mag>2.0 ? Holding home AMIODARONE 2 mg daily and VALSARTAN ? Continue IVF at 100 cc/H History of HTN She has a history of hypertension, however presenting with BP 69/58 in settings of tachycardia. BP improved with HR control. ? Holding home VALSARTAN 80 mg daily ? Continue fluids as above History of papillary thyroid cancer status post thyroidectomy, January [address] Hamilton when she follows outpatient. Procedure was done by Dr. Mcneal. Home thyroid medication was held 2 weeks ago in preparation for ablation and radioactive IODINE procedure today. She was seen by Dr. Hamilton today who postpone procedure until cardiac arrhythmia is controlled. He recommended resuming thyroid medications at half the dose (50 mcg) for 1 week, continue full dose (100 mcg) after 1 week. Admission TSH 98.88, free T4 0.21. ? Gave LEVOTHYROIXINE 25 mg X1 today ? Continue LEVOTHYROXINE 50 mcg ACBR until 04/18 ? Proceed with LEVOTHYROXINE 100 mcg ACBR on 04/19 Reactive leukocytosis Likely in settings of tachycardia. Afebrile, no clear source of infection. ? Pending UA Normocytic anemia, chronic Hgb 11.5, around baseline. No sings or symptoms of abnormal bleed. Coag panel WNL. ? Pending iron panel, ferratin Health maintenance Diet: N.p.o., medications okay GI prophylaxis: PROTONIX DVT prophylaxis: ELIQUIS Antibiotics: Not indicated CODE STATUS: Full code Disposition: Pending cardiology recommendations, controlling heart rate. Case was discussed with attending physician and senior resident. Carolyn Nina DO PGYI Attending Provider Attestation/Addendum I have discussed and was present for the essential components of the history, physical examination, diagnosis, and treatment plan with the resident. I agree with the patient's care as documented by the resident and amended herein by me. Azar Caceres DO. Although this document has been carefully reviewed, there may still be some phonetic and other typographical errors. These errors are purely grammatical due to imperfections in the software program and should not be construed in any way to compromise the substance of the patient's medical care during this visit.
[2025-04-11] MEDS: PANTOPRAZOLE INJ 40 MG VIAL IVP (15:07)
--- NOTE | 2025-04-11 16:02 | PC.NURSE ---
Called Resident Paolo to inform patient's heart rate went to mid/low 40's. Patient's blood pressure 104/61. Per Resident stop amiodarone drip for now.
--- NOTE | 2025-04-11 16:25 | PC.NURSE ---
REport given to Lizzy,patient transferring to room 276
[2025-04-11] MEDS: POTASSIUM CHLORIDE 20 mEq TABCR PO (16:29)
--- NOTE | 2025-04-11 17:25 | PD.RESCONSUL ---
HPI Data of Consult Requesting Physician: Dhaval Caceres DO Admitting Provider: Dhaval Caceres DO Attending Provider: Dhaval Caceres DO Primary Care Provider: Physician No Primary/Family Consult Narrative History of present illness: CC: HR 147, sent from [facility]. Patient is a 59-year-old female with past medical history of atrial fibrillation, SVT s/p ablation by Dr. Cortes, [employer] based in [place], history of SVT, and papillary thyroid carcinoma s/p total thyroidectomy (01/27/2025). Patient presented to the emergency room with chief complain of high pulse sent from the [facility] by Dr. Hamilton. Patient stated she has a past medical of atrial fibrillation status post ablation and continues to take amiodarone and Eliquis at home. Last Eliquis dose was this morning on 04/11/2025. Patient stated she has had a past medical history as SVT with previous emergency room visits where adenosine was administered, which resolved symptoms. Patient stated she was sent from Dr. Hamilton's office heart rate of 147 and TSH level of 131. Patient denied feelings of palpitations. Patient denied chest pain or chest pressure. Patient denied syncopal events. Patient denies shortness of breath. Denied any recent trauma. Patient denied any sick contacts, chills or pyrexia at home. Admitted on 04/11/2025 for SVT. ER Course: BP 69/54, HR 145, RR 20, T 97.8 CBC: WBC 15.7, Hgb 11.5, Hct 34.3, MCV 61 CMP: Na 141, K 3.9, Chloride 108, BUN 18, Cr 1.1, GFR 58, Glucose 138, Magnesium 2.0 Troponin <0.02 TSH 98.88 Free T 0.21 Medication: Amiodarone Drip, Normal Saline @ 100 m/hr PMH: Hypertension Atrial Fibrillation History of SVT s/p ablation Postprocedural Hypothyroidism Past Surgical History: S/P total thyroidectomy (01/27/2025) Past Family History: Patient denied past FAMILY history of cardiac disease, HTN, or HLD Home Medication: Valsartan 80 mg qday Amiodarone 200 mg qday Eliquis 5 mg BID Levothyroxine 100 mg ACBR, recently reduced to 50 mg ACBR secondary to possible secondary to radioiodine scan which was postpone secondary to insurance preop Social History: Current Smoker (half pack a day since age 23)-->18 pack years Denied Illicit Drug Use Denied Alcohol Use Allergies: none cc:: cc: Dhaval Caceres, Review of Systems Review of Systems Narrative Review of Systems: General appearance: NO weight change, NO fatigue, NO weakness, NO fever, NO chills, NO night sweats, No cough Skin: NO rash, NO itching, NO sores, NO moles HEENT: NO Trauma, NO nausea, NO vomiting, NO visual changes, NO blurry vision, NO double vision, NO tinnitus, NO vertigo, NO ear discharge, NO rhinorrhea, NO stuffiness, NO sneezing, NO allergy, NO epistaxis. NO Hoarseness, NO sore throat, NO swollen neck. Cardiac: NO Palpitations, NO dyspnea on exertion, NO orthopnea, NO paroxysmal nocturnal dyspnea, NO edema Respiratory: NO Shortness of Breath, NO Wheezing, NO Cough, NO Sputum, NO hemoptysis GI:NO appetite, NO nausea, NO vomiting, NO dysphagia, NO changes in bowel frequency, NO stool color, NO diarrhea, NO constipation, NO hemetemesis, NO hemorrhoids, NO melena, NO hematechezia, NO abdominal pain, NO jaundice Renal: NO frequency, NO hesitancy, NO urgency, NO hematuria, NO nocturia, NO incontinence MSK: NO muscle weakness, NO gout, NO arthritis, NO muscle stiffness Neuro: NO headaches, NO tremors, NO weakness, NO paralysis, NO seizures, NO loss of consciousness, NO numbness. Hem: NO anemia, NO easy bruising/bleeding, NO petechiae, NO purpura Endo: NO heat/cold intolerance, NO excessive sweating, NO polyuria, NO polydipsia, NO polyphagia, NO thyroid problems, NO diabetes Pysch: NO mood, NO anxiety, NO depression Constitutional Comments: General appearance: NO weight change, NO fatigue, NO weakness, NO fever, NO chills, NO night sweats, No cough Skin: NO rash, NO itching, NO sores, NO moles HEENT: NO Trauma, NO nausea, NO vomiting, NO visual changes, NO blurry vision, NO double vision, NO tinnitus, NO vertigo, NO ear discharge, NO rhinorrhea, NO stuffiness, NO sneezing, NO allergy, NO epistaxis. NO Hoarseness, NO sore throat, NO swollen neck. Cardiac: NO Palpitations, NO dyspnea on exertion, NO orthopnea, NO paroxysmal nocturnal dyspnea, NO edema Respiratory: NO Shortness of Breath, NO Wheezing, NO Cough, NO Sputum, NO hemoptysis GI:NO appetite, NO nausea, NO vomiting, NO dysphagia, NO changes in bowel frequency, NO stool color, NO diarrhea, NO constipation, NO hemetemesis, NO hemorrhoids, NO melena, NO hematechezia, NO abdominal pain, NO jaundice Renal: NO frequency, NO hesitancy, NO urgency, NO hematuria, NO nocturia, NO incontinence MSK: NO muscle weakness, NO gout, NO arthritis, NO muscle stiffness Neuro: NO headaches, NO tremors, NO weakness, NO paralysis, NO seizures, NO loss of consciousness, NO numbness. Hem: NO anemia, NO easy bruising/bleeding, NO petechiae, NO purpura Endo: NO heat/cold intolerance, NO excessive sweating, NO polyuria, NO polydipsia, NO polyphagia, NO thyroid problems, NO diabetes Pysch: NO mood, NO anxiety, NO depression Exam Vital Signs Temp Pulse Resp BP Pulse Ox O2 Del Method 98.0 F 119 H 16 99/69 96 Room Air 04/11/25 14:52 04/11/25 14:52 04/11/25 14:52 04/11/25 14:52 04/11/25 14:52 04/11/25 14:52 Narrative Exam General Appearance: Alert & Oriented X3, well-nourished female who is lying in bed in no acute HEENT: Skull symmetrical and atraumatic. Conjunctivae pink and moist. Pupils equal, round, reactive to light and accommodation (PERRL). External ear without lesion or discharge. Straight, nares patient, mucosa pink, no discharge. Cardio: Normal Rate and Rhythm with S1 and S2 heart sounds. No murmurs or extra heart sounds auscultated. No bruits on carotid auscultation. No peripheral edema or cyanosis. Lungs: Symmetric with good expansion. Chest and back non-tender. Breath sounds vesicular without crackles, wheezing or rhonchi Abdomen: Non-tender, Non-distended, Normal Reactive Bowel Sounds Neuro: Alert, cooperative, oriented to person, place, and time. Speech clear. CN grossly intact. Upper motor strength 5/5 and Lower motor strength 5/5. Sensation intact. Results Labs 04/11/25 10:22 04/11/25 10:22 Labs: Short CBC 04/11/25 Range/Units 10:22 WBC 15.7 H (3.6-11.0) Thou/mm3 Hgb 11.5 L (12.0-16.0) g/dL Hct 34.3 L (36.0-46.0) % Plt Count 258 (140-440) Thou/mm3 BMP 04/11/25 10:22 Sodium 141 Potassium 3.9 Chloride 108 H Carbon Dioxide 21.0 BUN 18 Creatinine 1.1 Glucose 138 H Calcium 9.1 Cardiac Enzymes 04/11/25 Range/Units 10:22 Troponin I < 0.020 (0.0-0.045) ng/mL Liver Function 04/11/25 Range/Units 10:22 Total Bilirubin 0.9 (0.3-1.2) mg/dL AST 24 (0-34) U/L ALT 17 (10-49) U/L Alkaline Phosphatase 96 (46-116) U/L Albumin 4.7 (3.5-5.0) gm/dL Quality Measures Quality Measures none Medications Home Medications and Allergies Home Medications ?Medication ?Instructions ?Recorded ?Confirmed ?Type amiodarone 200 mg tablet 200 mg PO QDAY 07/06/24 04/11/25 History folic acid 1 mg tablet 1 mg PO QDAY 07/06/24 04/11/25 History valsartan 80 mg tablet 80 mg PO QDAY 07/06/24 04/11/25 History apixaban 5 mg tablet (Eliquis) 5 mg PO BID 09/13/24 04/11/25 History Held on 01/27/25. Instructions: Resume on 01/31/25. folic acid 1 mg tablet 1 mg PO DAILY 09/13/24 04/11/25 History valsartan 80 mg tablet 80 mg PO DAILY 09/13/24 04/11/25 History Allergies Allergy/AdvReac Type Severity Reaction Status Date / Time No Known Allergies Allergy Verified 04/11/25 09:27 Visit Medications Acetaminophen (Acetaminophen 325 Mg Tablet) 650 mg PO Q6H PRN PRN Reason: PAIN SCALE 1-3 (mild Stop: 05/11/25 14:15 Acetaminophen (Acetaminophen 325 Mg Tablet) 650 mg PO Q6H PRN PRN Reason: Fever >100.4 Stop: 05/11/25 14:15 Apixaban (Apixaban 2.5 Mg Tablet) 5 mg PO BID ADÁN Stop: 05/11/25 20:59 Sodium Chloride (Ns) 1,000 mls @ 100 mls/hr IV .Q10H ONE Stop: 04/11/25 19:52 Last Admin: 04/11/25 10:31 Dose: 100 mls/hr Ondansetron HCl (Ondansetron Inj 2 Mg/Ml Inj 2 Ml) 4 mg IVP Q6H PRN; Protocol PRN Reason: NAUSEA OR VOMITING Stop: 05/11/25 14:15 Pantoprazole Sodium (Pantoprazole Inj 40 Mg Vial) 40 mg IVP QDAY ADÁN Stop: 05/11/25 14:29 Last Admin: 04/11/25 15:07 Dose: 40 mg Discontinued Medications Amiodarone HCl/Dextrose (Nexterone Ivpb) 150 mg in 100 mls @ 582.524 mls/hr IV X1 ONE Stop: 04/11/25 10:04 Last Infusion: 04/11/25 10:43 Dose: Infused Amiodarone HCl/Dextrose (Nexterone Ivpb) 360 mg in 200 mls @ 33.333 mls/hr IV .Q6H ONE Stop: 04/11/25 15:53 Last Infusion: 04/11/25 16:07 Dose: 0 mls/hr Levothyroxine Sodium (Levothyroxine Sodium 25 Mcg Tablet) 50 mcg PO ACBR ADÁN Stop: 04/18/25 05:59 Levothyroxine Sodium (Levothyroxine Sodium 25 Mcg Tablet) 25 mcg PO X1 ONE Stop: 04/11/25 16:39 Potassium Chloride (Potassium Chloride 20 Meq Tabcr) 20 meq PO X1 ONE Stop: 04/11/25 16:00 Last Admin: 04/11/25 16:29 Dose: 20 meq Assessment & Plan Plan Patient is a 59-year-old female with past medical history of atrial fibrillation s/p ablation by Dr. Cortes, [employer] based in [place], history of SVT, and papillary thyroid carcinoma s/p total thyroidectomy (01/27/2025) who was admitted by hospitalist team for SVT (04/11/2025). # Tachyarrhythymia - SVT - mostly AVNRT # History of Atrial Fibrillation on Amiodarone and AC # s/p ablation - unsure if it is for SVT or AFIB as per family Patient has a past medical history of SVT s/p ablation and history of Atrial Fibrillation started on Amiodarone and Eliquis 5 mg BID. Repeat EKG noted patient to be in AVNRT with p waves noted after QRS complex. Given past medical history of SVT and AVNRT, patient may resume Amiodarone 200 mg PO Qday and continue Eliquis. EKG repeat: AVNRT, hidden s waves noted in V1, V2, I, and III Troponin <0.02 Plan -Amiodarone drip stopped by primary team -Resume Amiodarone 200 mg QDay AM -Continue Eliquis 5 mg BID -Continue to monitor HR, patient baseline HR 40s-50s -Goal MAP>65 -TSH, Lipid AM, A1c AM -repeat EKG -Echo stat -K>4 and Mg >2 -Telemetry monitoring #Hypothyroidism #Postprocedural Hypothyroidism #Papillary Thyroid Carcinoma s/p Thyroidectomy (01/27/2025) Patient has past medical history of papillary thyroid cancer with recent thyroidectomy who recently had her levothyroxine cut in half to Levothyroxine 50 mcg. TSH 98.88, Free 0.21 Plan -by primary team -Levothyroxine 50 mcg PO ACBR until 04/18 -Resume home dose of Levothyroxine 100 mcg until 04/18 #Microcytic Anemia Patient has a past medical history of microcytic anemia since 2023 with an hgb of 11.5, hct 34.3, and MCV 61 on admission. Consider iron deficiency less likely secondary to ngozi blood loss vs chronic disease vs malignancy induced Plan -Managed by primary team -consider iron panel and ferritin -hgb >7 -monitor for ngozi blood loss Health Maintenance: Disp: Pt is currently admitted to floors for further management of AVNRT and cardiology consulted for AVNRT/Bradycardiai FEN: NPO DVT: Eliquis 5 mg BID Code: Full/DNR - The patient's plan was discussed with attending Dr. Russel Rivera MD PGY1 Internal Medicine Attending Provider Attestation/Addendum I have personally seen and examined the patient separately on the above date of service and discussed the plan of care with the resident. I reviewed the resident Dr. Samaria Rivera consultation progress note and agree with the resident findings and plan in the note above and have also edited the documentation to reflect my findings and plan. A 51-year-old female with a past medical history of SVT, questionable atrial fibrillation during an EP study in 2023 on amiodarone as well as anticoagulation with Eliquis, history of ablation by Dr. Riojas in July 2024-unclear if for SVT or A-fib, history of papillary thyroid carcinoma status post thyroidectomy 01/27/2025, hypothyroidism status post thyroidectomy on levothyroxine on hold by oncology for now for possible iodine scan, obesity, essential hypertension presented to the emergency department for further evaluation of high heart rate or tachyarrhythmia which is noted in the oncologist office Dr. Hamilton. Patient was started on amiodarone bolus as well as drip by the emergency department and was admitted to the hospital for further evaluation and initial heart rate was 140-150, was later on 120`s and finally converted to sinus bradycardia with heart rate between 40 to 50 bpm. I did review the EKG on admission and patient was in SVT and mostly has AVNRT with retrograde P waves noted after the QRS complexes. I did review the previous EKGs also and patient appears to be in SVT or AVNRT pattern most of the EKGs. Discussed with the son in detail and patient apparently did see is manager Dr. Riojas in patient was taken for ablation initially in June 2024 and patient apparently did flipp into atrial fibrillation during the procedure. Patient was again started on medications for the same and then patient did get a repeat procedure done when he performed the ablation of atrial fibrillation/flutter as per the son. Hence patient was placed on amiodarone as well as Eliquis. Patient was apparently at amiodarone for 6 months and was stopped but patient reverted back and continued to have episodes recently and hence and Dr. Riojas recommended to restart the patient on ambulatory now and also was restarted on Eliquis by him. Recommendations: If patient does have further episodes of tachyarrhythmia recommend first to give adenosine 6 mg x 1 as SVT response very well to adenosine and can repeat another dose of 12 mg adenosine x 1 prior to starting any kind of amiodarone drip. 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 As noted above there was questionable atrial fibrillation during the EP study and ablation done by Dr. Salcedo and hence recommended the patient to follow-up with Dr. Riojas as she is scheduled for another ablation next month as per the son. Ideally patient should not be on amiodarone given her age and also history of hypothyroidism but we will leave further recommendations of the amiodarone to be discussed by her is manager as outpatient. Okay to continue amiodarone 200 mg p.o. once daily for now along with anticoagulation Eliquis as per her EP doctors recommendation and follow-up with him in [place]ow potassium greater than 4 and magnesium greater than 2.0. Echocardiogram to evaluate for any structural heart disease and valvular abnormalities and also to evaluate LV function and RV function. Continue telemetry monitoring for now Primary team to repeat TSH and free T4 and treat the hypothyroidism appropriately. Management of rest of the medical conditions as per primary team and other consultants. Thank you for the consult and allowing me to participate in the care of the patient. Cardiology will continue to follow. Yusuf Goode M.D. Interventional Cardiology
[2025-04-11] MEDS: LEVOTHYROXINE SODIUM 25 MCG TABLET PO (17:57)
--- NOTE | 2025-04-11 20:00 | PC.NURSE ---
Dr. Mayes at bedside with Dr. Nina and Dr. Rivera to discuss POC and address any questions , patient with son present at bedside. MD aware of HR in the 40s and BP on the lower end.
--- NOTE | 2025-04-11 20:05 | PC.NURSE ---
per son Roor, Patient's HR when she is on the amiodarone is around the 40s 50s at baseline. Dr. Ramesh, Dr. Nina, Dr. Rivera at bedside.
[2025-04-11] MEDS: SODIUM CHLORIDE 0.9% 1000 ML 1,000 ML 75 ML IV (20:30)
[2025-04-11] MEDS: APIXABAN 2.5 MG TABLET 5 MG PO (20:30)
[2025-04-11 23:30] LABS: Collection Type, Urine Clean Catch
[2025-04-11 23:42] LABS: Bacteria,Urine 1+; Bilirubin,Urine Negative (Negative); Blood,Urine Trace (Negative); Clarity,Urine Clear (Clear/Hazy); Color,Urine Lt-Yellow (Lt Yel-Yel); Glucose, Urine Negative (Negative); Ketones,Urine Negative (Negative); Leukocyte Esterase,Urine Negative (Negative); Nitrite,Urine Negative (Negative); Protein,Urine Negative (Neg - Trace); RBC,Urine 1 /hpf (0-3); Specific Gravity,Urine 1.008 (1.001-1.035); Squamous Epithelial Cell,Urine 2 /hpf (0-5); Urobilinogen,Urine Negative mg/dL (0.0-1.0); WBC,Urine 1 /hpf (0-5)
[2025-04-12] VITALS: BP 99/49; PULSE 46; PULSE 47; RESP 112; TEMP 36.2; O2SAT 98
[2025-04-12 01:14] VITALS: BP 100/51; PULSE 50; RESP 16
--- NOTE | 2025-04-12 01:17 | PC.NURSE ---
updated Dr. Acevedo regarding patient's vital signs, patient's BP 100/51, HR still in the 40s. Patient is asymptomatic, resting comfortably. No new orders received.
[2025-04-12 02:56] VITALS: PULSE 105; RESP 18; RESP 96
[2025-04-12 04:00] VITALS: BP 97/57; PULSE 46; PULSE 51; RESP 16; TEMP 36.2; O2SAT 99
--- NOTE | 2025-04-12 04:56 | PC.NURSE ---
informed Dr. Del Rio regarding patient's vital signs, BP 97/51 MAP of 66, HR in the 60s, SR. Patient is asymptomatic, no new orders received.
[2025-04-12 04:58] VITALS: BMI 30.7
[2025-04-12 05:41] LABS: Basophils # (Auto) 0.1 Thou/mm3 (0.0-0.2); Basophils % (Auto) 1 % (0-2.5); Eosinophils # (Auto) 0.1 Thou/mm3 (0.0-0.5); Eosinophils % (Auto) 1 % (0-10); Hematocrit 29.1 % (36.0-46.0); Hemoglobin 9.6 g/dL (12.0-16.0); Immature Granulocytes % (Auto) 1 % (0-0); Immature Granulocytes Auto 0.08 Thou/mm3 (0.00-0.00); Lymphocytes # (Auto) 3.8 Thou/mm3 (1.0-4.8); Lymphocytes % (Auto) 40 % (10-50); Mean Corpuscular Hemoglobin 20.8 pg (25.0-35.0); Mean Corpuscular Volume 63 fL (80-100); Monocytes # (Auto) 0.5 Thou/mm3 (0.0-0.8); Monocytes % (Auto) 5 % (0-12); Neutrophils # (Auto) 5.1 Thou/mm3 (1.8-7.7); Neutrophils % (Auto) 53 % (37-80); Nucleated Red Blood Cell # 0.05 Thou/mm3 (0.00-0.00); Nucleated Red Blood Cell % 1 /100 WBC (0); Platelet Count 180 Thou/mm3 (140-440); RDW Standard Deviation 38.3 fL (36.4-46.3); Red Blood Count 4.62 Miln/mm3 (4.00-5.20); White Blood Count 9.7 Thou/mm3 (3.6-11.0)
[2025-04-12 05:48] LABS: Ferritin 109 ng/mL (7.3-270.7); Iron 105 mcg/dL (50-170); Percent Iron Saturation 34 % (20-55); Total Iron Binding Capacity 304 mcg/dL (250-425); Unsaturated Iron Binding 199 (225-295)
[2025-04-12 06:11] LABS: Alanine Aminotransferase 15 U/L (10-49); Anion Gap 9 (7-16); Aspartate Amino Transferase 20 U/L (0-34); BUN/Creatinine Ratio 12 Ratio (12-20); Bilirubin,Total 0.8 mg/dL (0.3-1.2); Blood Urea Nitrogen 12 mg/dL (9-23); Calcium 8.2 mg/dL (8.3-10.6); Carbon Dioxide 22.3 mMol/L (20.0-31.0); Cardiac Risk Estimate 5.1 RATIO (3.7-5.6); Chloride 112 mMol/L (98-107); Cholesterol 198 mg/dL (132-200); Estimated Creatinine Clearance 72.7 mL/min (>60); Glucose 91 mg/dL (74-106); Glucose Estimated Average 94 mg/dL (80-131); HDL Cholesterol 39 mg/dL (40-60); Hemoglobin A1C 4.9 % Hgb (4.8-6.0); LDL Cholesterol,Calculated 136 mg/dL (0-130); Osmolality,Calculated 284 (275-295); Phosphorous 3.5 mg/dL (2.4-5.1); Potassium 4.2 mMol/L (3.4-5.1); Sodium 143 mMol/L (136-145); Total Protein 5.7 gm/dL (5.7-8.2); Triglycerides 114 mg/dL (30-150); eGFR > 60 See Note
[2025-04-12 06:12] LABS: Albumin, Serum 3.8 gm/dL (3.5-5.0); Alkaline Phosphatase 73 U/L (46-116); Calcium (Corrected) 8.4 mg/dL (8.5-10.1); Globulin 1.9 gm/dL (2.3-3.5)
[2025-04-12 07:28] VITALS: PULSE 48; RESP 18; RESP 95
[2025-04-12 08:00] VITALS: BP 130/77; PULSE 53; RESP 20; TEMP 36.1; O2SAT 96
--- NOTE | 2025-04-12 08:00 | PD.RESPRO ---
Documentation for date of: 04/12/25 Subjective Subjective Interval history: Patient is a 59-year-old female with past medical history of atrial fibrillation, SVT s/p ablation by Dr. Cortes, [employer] based in [place], history of SVT, and papillary thyroid carcinoma s/p total thyroidectomy (01/27/2025). Patient presented to the emergency room with chief complain of high pulse sent from the cancer center by Dr. Hamilton. Patient stated she has a past medical of atrial fibrillation status post ablation and continues to take amiodarone and Eliquis at home. Last Eliquis dose was this morning on 04/11/2025. Patient stated she has had a past medical history as SVT with previous emergency room visits where adenosine was administered, which resolved symptoms. Patient stated she was sent from Dr. Hamilton's office heart rate of 147 and TSH level of 131. Patient denied feelings of palpitations. Patient denied chest pain or chest pressure. Patient denied syncopal events. Patient denies shortness of breath. Denied any recent trauma. Patient denied any sick contacts, chills or pyrexia at home. Admitted on 04/11/2025 for SVT. 04/12/2025: Patient left Against Medical Adivce (AMA). No echo taken as patient refused, which would have been beneficial to rule out structural change Exam Vital Signs Temp Pulse Resp BP Pulse Ox O2 Del Method 96.9 F 53 L 20 130/77 96 Room Air 04/12/25 08:00 04/12/25 08:00 04/12/25 08:00 04/12/25 08:00 04/12/25 08:00 04/12/25 08:00 Narrative Exam General Appearance: Alert & Oriented X3, well-nourished female who is lying in bed in no acute HEENT: Skull symmetrical and atraumatic. Conjunctivae pink and moist. Pupils equal, round, reactive to light and accommodation (PERRL). External ear without lesion or discharge. Straight, nares patient, mucosa pink, no discharge. Cardio: Normal Rate and Rhythm with S1 and S2 heart sounds. No murmurs or extra heart sounds auscultated. No bruits on carotid auscultation. No peripheral edema or cyanosis. Lungs: Symmetric with good expansion. Chest and back non-tender. Breath sounds vesicular without crackles, wheezing or rhonchi Abdomen: Non-tender, Non-distended, Normal Reactive Bowel Sounds Neuro: Alert, cooperative, oriented to person, place, and time. Speech clear. CN grossly intact. Upper motor strength 5/5 and Lower motor strength 5/5. Sensation intact. Objective Labs 04/12/25 04:36 04/12/25 04:36 Labs: Laboratory Results - last 24 hr 04/11/25 04/12/25 22:55 04:36 WBC 9.7 D RBC 4.62 Hgb 9.6 L Hct 29.1 L MCV 63 L MCH 20.8 L MCHC 33.0 RDW Std Deviation 38.3 Plt Count 180 D Neut % (Auto) 53 Lymph % (Auto) 40 Clay % (Auto) 5 Eos % (Auto) 1 Baso % (Auto) 1 Neut # (Auto) 5.1 Lymph # (Auto) 3.8 Clay # (Auto) 0.5 Eos # (Auto) 0.1 Baso # (Auto) 0.1 Immature Gran # (Auto) 0.08 H Absolute Nucleated RBC 0.05 H Immature Gran % 1 H Nucleated RBC % 1 H Sodium 143 Potassium 4.2 Chloride 112 H Carbon Dioxide 22.3 Anion Gap 9 BUN 12 Creatinine 1.0 Estim Creat Clear Calc 72.7 eGFR > 60 BUN/Creatinine Ratio [address] Glu mg/dL 94 Hemoglobin A1c 4.9 Calculated Osmolality 284 Calcium 8.2 L Corrected Calcium 8.4 L Phosphorus 3.5 Magnesium 2.0 Iron 105 TIBC 304 Iron Saturation 34 Unsat Iron Binding 199 L Ferritin 109 Total Bilirubin 0.8 AST 20 ALT 15 Alkaline Phosphatase 73 D Total Protein 5.7 Albumin 3.8 D Globulin 1.9 L Albumin/Globulin Ratio 2.0 Triglycerides 114 Cholesterol 198 LDL Cholesterol, Calc 136 H HDL Cholesterol 39 L Cholesterol/HDL Ratio 5.1 Ur Collection Type Clean Catch Urine Color Lt-Yellow Urine Clarity Clear Urine pH 6.0 Ur Specific [place] 1.008 Urine Protein Negative Urine Glucose (UA) Negative Urine Ketones Negative Urine Blood Trace Urine Nitrite Negative Urine Bilirubin Negative Urine Urobilinogen (Auto) Negative Ur Leukocyte Esterase Negative Urine RBC 1 Urine WBC 1 Ur Squamous Epith Cells 2 Urine Bacteria 1+ A Quality Measures Quality Measures VTE prophylaxis Assessment & Plan Plan Patient is a 59-year-old female with past medical history of atrial fibrillation s/p ablation by Dr. Cortes, [employer] based in [place], history of SVT, and papillary thyroid carcinoma s/p total thyroidectomy (01/27/2025) who was admitted by hospitalist team for SVT (04/11/2025). # Tachyarrhythymia - SVT - mostly AVNRT # History of Atrial Fibrillation on Amiodarone and AC # s/p ablation - unsure if it is for SVT or AFIB as per family Patient has a past medical history of SVT s/p ablation and history of Atrial Fibrillation started on Amiodarone and Eliquis 5 mg BID. Repeat EKG noted patient to be in AVNRT with p waves noted after QRS complex. Given past medical history of SVT and AVNRT, patient may resume Amiodarone 200 mg PO Qday and continue Eliquis. 04/12/2025 Patient left AMA, no echo taken. Please follow up with patient's pastrycook as outpatient. Continue Amiodarone and Eliquis. EKG repeat: AVNRT, hidden s waves noted in V1, V2, I, and III Troponin <0.02 Plan -Amiodarone drip stopped by primary team -Resume Amiodarone 200 mg QDay AM -Continue Eliquis 5 mg BID -Echo , not taken -K>4 and Mg >2 -Telemetry monitoring 04/12/2025: Patient left Against Medical Adivce (AMA). No echo taken as patient refused, which would have been beneficial to rule out structural change #Hypothyroidism #Postprocedural Hypothyroidism #Papillary Thyroid Carcinoma s/p Thyroidectomy (01/27/2025) Patient has past medical history of papillary thyroid cancer with recent thyroidectomy who recently had her levothyroxine cut in half to Levothyroxine 50 mcg. TSH 98.88, Free 0.21 Plan -by primary team -Levothyroxine 50 mcg PO ACBR until 04/18 -Resume home dose of Levothyroxine 100 mcg until 04/18 #Microcytic Anemia Patient has a past medical history of microcytic anemia since 2023 with an hgb of 11.5, hct 34.3, and MCV 61 on admission. Consider iron deficiency less likely secondary to ngozi blood loss vs chronic disease vs malignancy induced Plan -Managed by primary team -consider iron panel and ferritin -hgb >7 -monitor for ngozi blood loss Health Maintenance: Disp: Pt is currently admitted to floors for further management of AVNRT and cardiology consulted for AVNRT/Bradycardia. Please follow up with your pastrycook as outpatient after being hospitilized and PCP. FEN: cardiac diet DVT: Eliquis 5 mg BID Code: Full - The patient's plan was discussed with attending Dr. Russel Rivera MD PGY1 Internal Medicine Attending Provider Attestation/Addendum I have personally seen and examined the patient separately on the above date of service and discussed the plan of care with the resident. I reviewed the resident Dr. Samaria Rivera consultation progress note and agree with the resident findings and plan in the note above and have also edited the documentation to reflect my findings and plan. Yusuf Goode M.D. Interventional Cardiology
--- NOTE | 2025-04-12 08:15 | PC.NURSE ---
Addendum entered by Marybel Oswald RN 04/12/25 10:57: Patient pacing back and forth at bedside wanting to leave, pt refused assessments, want to go home and left at 0820. Original Note: Pt wants to leave Dr. Kelle MODI at bedside explaining the risks and benefits. Patient made aware.
--- NOTE | 2025-04-12 08:34 | ESDS_ITS ---
<Statement entered by Regino Boone MD - 04/12/25 13:15> I discussed with and supervised the epidemiology intern physician involved in the care of this patient. Patient assessment and plan was discussed with entire medicine team, including my attending. I agree with the assessment and plan as documented by epidemiology intern doctor. Patient care was discussed with my attending physician Dr. Morris Boone, PGY-2 Planned Discharge Date 04/12/25 DS: Providers Provider Date of admission: 04/11/25 14:23 Primary care physician: Physician No Primary/Family Admitting Provider: Dhaval Caceres DO Attending Provider on Admission: Dhaval Caceres DO Consults: 04/11/25 12:08 Consult to Cardiology Stat Comment: Consulting Provider: Yusuf Goode 04/11/25 17:24 Health [facility] Referral - Knowledge Deficit Routine Comment: Positive screening for knowledge deficit needs. Attending Provider on DC: Dr. Dhaval Caceres DO Discharging Provider: Dr. Dhaval Caceres DO DS: Diagnosis Problem List Completed Was Problem List Reviewed/Reconciled?: Yes Hospital Course Hospital Course Hospital course: The patient left AGAINST MEDICAL ADVICE on 04/12. This is a 59 year-old female with PMHx of chronic tachyarrhythmia currently on home AMIODARONE and ELIQUIS, s/p atrial ablation X2 (last 07/2024), HTN, multifocal papillary thyroid cancer s/p thyroidectomy 01/27/2025, presenting to the ED with a chief complaint of palpitation. EKG was done in the ED and was read as A-FLUTTER with RVR, HR 140s, and she was started on AMIODARONE ggt. However, repeat EKG showed SVT (mostly AVNRT) with HR 120s. While in ED, HR decreased in the 40s and subsequently AMIODARONE drip was discontinued. She remained hemodynamically stable during hospital course. Palpitations have resolved. However, her blood pressure was in 90s/60s, likely 2/2 AMIODARONE. She was continued on IVFs and oral fluids encouraged. Troponin was negative. Day 2 of admission, patient requested to leave the hospital but was pending ECHO and further recommendations from cardiology. Patient was alert and oriented x3 and demonstrates understanding of her condition and the potential consequences of leaving against medical advice. I discussed the risks of leaving AMA, including potential worsening of her tachycardia, risk of arrhythmia, and possible adverse cardiac events without full evaluation and treatment. She has an appointment with electrophysiology in 2 weeks; she was encouraged to contact her EP doctor today to update them on this admission and discuss interim management. Patient has full decision making capacity, understands the risk, and elected to proceed with AMA. Of note: she was seen by onbcolgy on the day of admission for iodine uptake procedure. Her home thyroid medication was held 2 weeks ago in preparation for ablation and radioactive IODINE procedure today. She was seen by Dr. Hamilton today who postpone procedure until cardiac arrhythmia is controlled. He recommended resuming thyroid medications at half the dose (50 mcg) for 1 week, continue full dose (100 mcg) after 1 week. Admission TSH 98.88, free T4 0.21. Additionally: she had mild DONALD (CR 1.0) in setting of tachycardia (poor perfusion) which improved with fluids. WBC 15 on admission, afebrile, likely reactive, UA was negative for UTI, leukocytosis resolved by day 2. IMAGE FINDINGS: * Initial EKG read as A-flutter with RVR, however appears more consistent with SVT. * Repeat EKG (1) demonstrated SVT/AVNRT with HR 120s. * Repeat EKG (2) showed sinus tachycardia with first degree block, and nonspecific ST/T-wave abnormalities. * CXR showed no active diesase. PATIENT INSTRUCTIONS: * Follow-up with PCP within 1-2 weeks of discharge. * Follow-up with your saddle lining stitcher within 1 week of discharge. * Follow-up with oncology, Dr. Hamilton, within 1-2 weeks of discharge. * Continue taking LEVOTHYROXINE 50 mg daily for 6 more days (until 04/18/2025), continue taking LEVOTHYROXINE 100 mg daily thereafter (start on 04/19/2025). * Your blood pressure has been lower, do not take VALSARTAN 80 mg daily unless you're blood pressure is >130/90. * Return to Emergency Room if symptoms persist, worsen, or new symptoms develop. * Continue taking medications as prescribed below. ADMISSION DIAGNOSES: Supraventricular tachycardia (resolved) Hx tachyarrhythmia with frequent recurrence S/p atrial fibrillation X2 History of HTN History of papillary thyroid cancer status post thyroidectomy, January 2025 Reactive leukocytosis Normocytic anemia, chronic and stable. Case was discussed with attending physician and senior resident. DO TEJAS Ibrahim Time Spent with Patient Time attestation: Total time spent providing and/or coordinating discharge services: Time spent: Greater than 30 minutes Exam Vital Signs Temp Pulse Resp BP Pulse Ox O2 Del Method 96.9 F 53 L 20 130/77 96 Room Air 04/12/25 08:00 04/12/25 08:00 04/12/25 08:00 04/12/25 08:00 04/12/25 08:00 04/12/25 08:00 Narrative Exam GENERAL * Normal appearing adult female, in mild distress (concerned about HR), satting well on room air. HEENT * NCAT.?HORTENCIA. Oral mucosa is moist. Patent Nares NECK * Supple, nontender, no thyromegaly, no meningismus, no JVD, no step offs CHEST * RRR, no m/g/r * CTAB, no w/r/r. Symmetrical chest rise. No intercostal subcostal retraction * Atraumatic, nontender, no crepitus, symmetrical expansion. ABDOMEN * Soft, flat, nontender. No guarding/rebound tenderness/masses. * Bowel sounds presents EXTREMITIES * No edema/cyanosis.? SKIN * Warm and dry, no jaundice/rashes. NEUROMUSCULAR * No lumbar or midline, no CVA, no paraspinal muscle spasm or tenderness. * Moves all 4 extremities well, with full ROM and good CSM. * ZELAYA x4, CN II-XII grossly intact. * No focal neurologic deficits. PSYCHIATRY * Normal mood and affect, cooperative, no SI or HI or hallucinations. Discharge Plan Plan Patient Disposition: Left Against Medical Advice Patient condition on transfer: Stable Care Plan Goals: * Follow-up with PCP within 1-2 weeks of discharge. * Follow-up with your saddle lining stitcher within 1 week of discharge. * Follow-up with oncology, Dr. Hamilton, within 1-2 weeks of discharge. * Continue taking LEVOTHYROXINE 50 mg daily for 6 more days (until 04/18/2025), continue taking LEVOTHYROXINE 100 mg daily thereafter (start on 04/19/2025). * Your blood pressure has been lower, do not take VALSARTAN 80 mg daily unless you're blood pressure is >130/90. * Return to Emergency Room if symptoms persist, worsen, or new symptoms develop. * Continue taking medications as prescribed below. Patient has been pending ECHO and further recommendations from cardiology. However, she stated she wants to leave. Patient is alert and oriented x3 and demonstrates understanding of her condition and the potential consequences of leaving against medical advice. I discussed the risks of leaving AMA, including potential worsening of her tachycardia, risk of arrhythmia, and possible adverse cardiac events without full evaluation and treatment. She has an appointment with electrophysiology in 2 weeks; she was encouraged to contact her EP doctor today to update them on this admission and discuss interim management. Patient has full decision making capacity, understands the risk, and elected to proceed with AMA. Prescriptions/Referrals Prescriptions/Med Rec: New levothyroxine 50 mcg capsule 50 mcg PO QDAY Qty: 6 0RF Rx Instructions: Take 1 pill (50 mg) for 6 more days levothyroxine 100 mcg capsule 100 mcg PO QDAY Qty: 30 0RF Rx Instructions: Start taking 100 mcg daily on 04/19/2025, continue taking 1 pill daily there after. Continued hydrocodone-acetaminophen 5-325 mg tablet 1 tab PO BID MDD 10mg PRN (Reason: pain) Qty: 10 0RF docusate sodium [Colace] 100 mg capsule 100 mg PO BID Qty: 40 0RF ibuprofen 600 mg tablet 600 mg PO Q8H PRN (Reason: pain (scale score 4-6)) Qty: 15 0RF calcium carbonate [Calcium 500] 500 mg calcium (1,250 mg) tablet,chewable 500 mg PO BID Qty: 30 0RF amiodarone 200 mg Tablet 200 mg PO QDAY folic acid 1 mg Tablet 1 mg PO QDAY Eliquis 5 mg tablet 5 mg PO BID Patient Comments: TAKE ONE TABLET BY MOUTH TWICE DAILY FOR THE HEART Held valsartan 80 mg Tablet 80 mg PO QDAY Hold Instructions: Resume on 04/12/25. Do not take if blood pressure <130/90 Discontinued levothyroxine [Synthroid] 100 mcg tablet 100 mcg PO QDAY Qty: 30 3RF hydrocodone-acetaminophen 5-325 mg tablet 1 tab PO Q6H MDD 4 PRN (Reason: pain (scale score 7-10)) Qty: 15 0RF valsartan 80 mg tablet 80 mg PO DAILY Patient Comments: TAKE ONE TABLET BY MOUTH EVERY DAY FOR BLOOD PRESSURE folic acid 1 mg tablet 1 mg PO DAILY Patient Comments: TAKE ONE TABLET BY MOUTH EVERY DAY VITAMIN Referrals: No Primary/Family,Physician [Primary Care Provider] - Patient/Caregiver Discharge Instructions Education Materials: AFL/Afib, Calcium Channel Blockers Dc, ED Hypothyroidism Print Language: Yakut Quality Discharge Quality Measures VTE prophylaxis MD Attestestation MD Attestation The patient unfortunately left AGAINST MEDICAL ADVICE, all risks of leaving the hospital before all workup and evaluation were complete were explained to the patient to include , she did understand.
== END 2025-04-12 08:20 | disposition left against medical advice (07) | DRG 201 ==
LOC: SERX 12:35 → SERHOLD 14:26 → S2NX 16:42
PROVIDERS: Admitting Provider Student in an Organized Health Care Education/Training Program; Emergency Provider Family Medicine; Visit Provider Student in an Organized Health Care Education/Training Program
DX: I48.92 Unspecified atrial flutter (principal); I48.91 Unspecified atrial fibrillation; I10 Essential (primary) hypertension; C73 Malignant neoplasm of thyroid gland; D50.9 Iron deficiency anemia, unspecified; F17.210 Nicotine dependence, cigarettes, uncomplicated; I47.19 Other supraventricular tachycardia; N17.9 Acute kidney failure, unspecified; Z53.29 Procedure and treatment not carried out because of patient's decision for other reasons; Z66 Do not resuscitate; Z79.01 Long term (current) use of anticoagulants; Z79.890 Hormone replacement therapy; Z79.899 Other long term (current) drug therapy; Z90.49 Acquired absence of other specified parts of digestive tract; E89.0 Postprocedural hypothyroidism
CPT/HCPCS: 36415; 71045; 80053; 80061; 81001; 82728; 83036; 83540; 83550; 83735; 84100; 84439; 84443; 84484; 85025; 85610; 85730; 93005; 96361; 96365; 96367; 96375; 99291; J0283; J2470; J7030; A9270

== ENCOUNTER 2025-06-21 09:43 | Outpatient (RCR) | payer MEDICAID, SELFPAY ==
--- NOTE | 2025-06-08 16:08 | CTCFLWUP_ITS ---
[facility] [address] [place], [place] [address] FOLLOW-UP NOTE Date: 06/08/2025 MR#: [id number] Name: GRICELDA CRAMER : 1965 Dx: C73 Malignant neoplasm of thyroid gland Identification. Patient with multifocal right and left papillary thyroid carcinoma total thyroidectomy performed 01/27/2025. Multifocal right lobe (0.5cm) left lobe(1.3 x 1 x 0.7 cm) margins negative angioinvasion not seen with 9 lymph nodes negative for mets. pTibpN0. Patient was going to have radioiodine procedure done 2 months ago when she developed tachyarrhythmia, SVT with rapid ventricular response. Patient reportedly had a procedure performed that made into a sinus rhythm. Due to hyperthyroid state that is achieved during this procedure there is a possibility of this happening again. We can try this again or another option is to use Thyrogen but this will require authorization. Another option since she is a low risk is to continue observation with periodic ultrasound thyroid replacement etc. They will think about these options and get back with me. Electronically signed by: Alec Hamilton M.D. 06/08/2025 4:06 PM
== END 2025-06-25 23:59 | disposition home or self-care (01) ==
LOC: SCTC 09:43
PROVIDERS: PCP Physician Assistant; Referring Provider Radiology Therapeutic Radiology; Visit Provider Radiology Therapeutic Radiology
DX: C73 Malignant neoplasm of thyroid gland (principal); E89.0 Postprocedural hypothyroidism; Z92.3 Personal history of irradiation
CPT/HCPCS: 99213; G0463

== ENCOUNTER 2025-06-22 11:30 | Outpatient (RCR) | payer MEDICAID, SELFPAY ==
--- NOTE | 2025-06-13 10:07 | PTNOTE_ITS ---
PT OP Initial Eval Patient Information Outpatient Physical Therapy Treatment Date: 06/13/25 Visit Reasons: back pain Medical Diagnosis: M54.50 Treatment Dx #1: back pain Start of Care: 06/13/25 Date of Onset: 8 months Smoking Status Smoking Status: Light (< 1 pack/day) Cessation Counseling Provided: SAHAR was advised that quitting smoking is the single most important factor to protect the health of themselves and their family. Discussed the benefits of quitting smoking with patient. Encouraged patient to quit smoking and provided Cessation assistance materials and resources. Tobacco Use: Cigarette Years smoked: 35 Are you interested in quitting?: Yes Would you like additional Smoking Cessation Counseling?: No Initial Assessment Subjective: Pt is 60 yr old Kazakh speaking female here with her who is interpreting. She c/o LBP which they think started about 8 months ago when she lifted a couch. She feels relief from a back brace and wears it all day. The pain is worse in the morning and with bending fwd. PMH: SVT, thyroidectomy, chlecystectomy Imaging: X-ray and CT in EMR Moderate osteopenia, Chronic osteoporotic compression T12, Depression superior endplate T11 which may be acute, Pt goal: less back pain Objective: L/S ArOM: Flexion: full with pain Extension: 30% Rotation: pain to the R SB: pain to the L TTP: high of T10-12 paraspinals Assessment: Pt presentation consistent with referring Dx of thoracic compression FX's at T11 and T12. Pt not likely going to benefit from conservative Rx to meet long-term goals and has poor rehab potential but we will try a couple trial Rx's to teach HEP. Short Term and [facility] Goals 1. Ind with HEP 2. Decreased TTP of T/S paraspinals from high to min/mod 3. Improved rotation B to 75% of full Treatment Plan 1. Manual therapy ? 2. Therex ? 3. Modalities as indicated, moist heat, ice, estim Frequency and Duration: 1-2x a week for 3 trial visits then up to 12 if progressing Certification Dates: 06/13/25 to 09/11/25 Procedure Charges OP PT Eval Mod Complex 30 minutes: Yes
--- NOTE | 2025-06-19 11:44 | PT.ODAYNRPT ---
PT Outpatient Daily Note OP Daily Note Outpatient Physical Therapy Treatment Date: 06/19/25 Visit Reasons: back pain Subjective: Same as time of evaluation Objective: See F/S for therex Assessment: Good demo of lumbar stabilization therex with some LBP especially with transfers to and from supine. Plan: Continue per POC Length of Time (minutes) of Treatment: 30 Minutes Procedure Charges Therapeutic Exercise 30 minutes: Yes
--- NOTE | 2025-06-22 17:28 | PT.ODAYNRPT ---
PT Outpatient Daily Note OP Daily Note Outpatient Physical Therapy Treatment Date: 06/22/25 Visit Reasons: back pain Subjective: Continued LBP Objective: See F/S for therex Assessment: Good demo of lumbar stabilization therex with some LBP especially with transfers to and from supine. Plan: Continue per POC Length of Time (minutes) of Treatment: 30 Minutes Procedure Charges Therapeutic Exercise 30 minutes: Yes
== END 2025-06-25 23:59 | disposition home or self-care (01) ==
LOC: CPTX 11:30
PROVIDERS: PCP Orthopaedic Surgery; Referring Provider Orthopaedic Surgery; Visit Provider Orthopaedic Surgery
DX: M54.50 Low back pain, unspecified (principal); Z71.6 Tobacco abuse counseling; F17.210 Nicotine dependence, cigarettes, uncomplicated
CPT/HCPCS: 97110; 97162

== ENCOUNTER 2025-07-18 08:16 | Outpatient (RCR) | payer MEDICAID, SELFPAY ==
--- NOTE | 2025-07-18 09:07 | CTCFLWUP_ITS ---
[facility] [address] [place], [place] [address] FOLLOW-UP NOTE Date: 07/18/2025 MR#: [id number] Name: GRICELDA CRAMER : 1965 Dx: C73 Malignant neoplasm of thyroid gland Identification. Patient has been off thyroid for 1 week after taking half strength for several weeks. TSH is now at ideal elevated range. Radiation safety instructions were given. Will see patient after the ablation and told by the iodine scan. Electronically signed by: Alec Hamilton M.D. 07/18/2025 9:04 AM
== END 2025-07-25 23:59 | disposition home or self-care (01) ==
LOC: SCTC 08:16
PROVIDERS: PCP Orthopaedic Surgery; Referring Provider Orthopaedic Surgery; Visit Provider Radiology Therapeutic Radiology
DX: C73 Malignant neoplasm of thyroid gland (principal)
CPT/HCPCS: 99213; G0463

== ENCOUNTER 2025-07-20 11:00 | Outpatient (RCR) | payer MEDICAID, SELFPAY ==
--- NOTE | 2025-06-27 13:05 | PT.ODAYNRPT ---
PT Outpatient Daily Note OP Daily Note Outpatient Physical Therapy Treatment Date: 06/27/25 Visit Reasons: back pain Subjective: Pt c/o back pain today. Objective: Please see flow sheet for ther ex list. Assessment: Interventions completed with minimal pain. Plan: Continue with POC. Length of Time (minutes) of Treatment: 30 Minutes Procedure Charges Therapeutic Exercise 30 minutes: Yes
--- NOTE | 2025-07-04 11:51 | PT.ODAYNRPT ---
PT Outpatient Daily Note OP Daily Note Outpatient Physical Therapy Treatment Date: 07/04/25 Visit Reasons: back pain Subjective: Pt explains she experiences an increase in back pain when lying supine. Objective: See F/S for therex Assessment: Pt tolerated therex well with no increase in back pain. Requires minimal verbal and tactile cues to correct form with exercises. Plan: Continue with POC Length of Time (minutes) of Treatment: 30 Minutes Procedure Charges Therapeutic Exercise 30 minutes: Yes
--- NOTE | 2025-07-11 13:04 | PT.ODAYNRPT ---
PT Outpatient Daily Note OP Daily Note Outpatient Physical Therapy Treatment Date: 07/11/25 Visit Reasons: back pain Subjective: No new complaints. Objective: Please see flow sheet for ther ex list. Assessment: Pt continues to use back brace for support, verbal cues to avoid retro lean with standing thera band exercises, pt complied. Plan: Continue with poC. Length of Time (minutes) of Treatment: 30 Minutes Procedure Charges Therapeutic Exercise 30 minutes: Yes
--- NOTE | 2025-07-13 12:02 | PT.ODAYNRPT ---
PT Outpatient Daily Note OP Daily Note Outpatient Physical Therapy Treatment Date: 07/13/25 Visit Reasons: back pain Subjective: Pt c/o of minimal back pain, continues to use back brace for support. Objective: See F/S for therex performed Assessment: Performs exercises with improved form, requiring less cues to correct posture. Appropriate fatigue with therex and pt reports PT is helping. Plan: Continue with POC Length of Time (minutes) of Treatment: 30 Minutes Procedure Charges Therapeutic Exercise 30 minutes: Yes
--- NOTE | 2025-07-17 12:40 | PT.ODAYNRPT ---
PT Outpatient Daily Note OP Daily Note Outpatient Physical Therapy Treatment Date: 07/17/25 Visit Reasons: back pain Subjective: Pt c/o minimal back pain and states she feels best with her lumbar brace on. Objective: See F/S for therex performed Assessment: Appropriate fatigue with therex. Minimal verbal cues required to avoid trunk lean with resisted 3-way hip exercises; pt able to self correct. Plan: Continue with POC Length of Time (minutes) of Treatment: 30 Minutes Procedure Charges Therapeutic Exercise 30 minutes: Yes
--- NOTE | 2025-07-20 16:39 | PT.ODS1RPT ---
PT OP Progress/Discharge Note Date of Service: 07/20/25 Progress Note/DC Note Progress Note/Discharge Note: DC Note Patient Information Visit Reasons: back pain Service Continue Service or Discharge: Discharge Discharge Date: 07/20/25 Status Subjective: The LB feels about the same as before therapy, the back still hurts Objective: Trunk AROM: FB: full with pain Extension: 30% with pain Rotation: pain to the R TTP: mod/high of T10-12 paraspinals Assessment: Pt has attended 8 Rx sessions with limited progress with therapy goals due to continued LBP. Pt has pain with trunk movements and laying supine consistent with referring Dx of thoracic compression FX's. Plan: D/C with HEP Procedure Charges Therapeutic Exercise 30 minutes: Yes
== END 2025-07-25 23:59 | disposition home or self-care (01) ==
LOC: CPTX 11:00
PROVIDERS: PCP Orthopaedic Surgery; Referring Provider Orthopaedic Surgery; Visit Provider Orthopaedic Surgery
DX: M54.50 Low back pain, unspecified (principal)
CPT/HCPCS: 97110

== ENCOUNTER 2025-07-31 11:00 | Outpatient (RCR) | payer MEDICAID, SELFPAY ==
--- NOTE | 2025-07-24 09:30 | XR_ITS ---
Examination: Whole body nuclear medicine thyroid scan Date and time: July 31, 2025, 1811 hours INDICATIONS: Thyroid cancer diagnosis, thyroidectomy January 27, 2025 TECHNIQUE: Oral administration 32 uCi I 131 Increased uptake in the thyroid bed No findings of osseous metastatic disease IMPRESSION: Increased isotope accumulation in the thyroid bed No findings of osseous metastatic disease
== END 2025-08-05 23:59 | disposition home or self-care (01) ==
LOC: SNUC 11:00
PROVIDERS: PCP Physician Assistant; Referring Provider Radiology Therapeutic Radiology; Visit Provider Radiology Therapeutic Radiology
DX: E07.89 Other specified disorders of thyroid (principal); C73 Malignant neoplasm of thyroid gland
CPT/HCPCS: 78014; A9517

== ENCOUNTER 2025-08-01 13:18 | Outpatient (RCR) | payer MEDICAID, SELFPAY ==
--- NOTE | 2025-08-01 14:06 | CTCFLWUP_ITS ---
[facility] [address] [place], [place] [address] FOLLOW-UP NOTE Date: 08/01/2025 MR#: [id number] Name: GRICELDA CRAMER : 1965 Dx: C73 Malignant neoplasm of thyroid gland Identification. Patient with multifocal right and left papillary thyroid carcinoma total thyroidectomy performed 01/27/2025. pT1bN0. 9 lymph nodes removed negative for mets. Initially attempted radioiodine procedure in March had to be abandoned as she developed tachyarrhythmia SVT with rapid vesicular response. Subsequent underwent procedure performed that made her into a sinus rhythm. The procedure was performed again with her being off thyroid and receiving 32 mCi of radioiodine on 07/24/2025. Patient followed radiation safety precautions. Post radioiodine scan performed 07/31/2025 showed no sign of any mets. #1. Patient with stage 1 TibpN0 papillary thyroid carcinoma. #2. Completed radioiodine with all the radiation safety precautions 30 mCi. #3. Postop scan shows no sign of any mets #4. gradually place patient back on thyroid medications. Check thyroid functions in 2 months with thyroglobulin thyroglobulin antibody. Patient was previously on 100 mcg of Synthroid. #5. Will get ultrasoundWithin 6 months. Cc: Mariya Spencer PA-C [facility] Bassam Mcneal MD Electronically signed by: Alec Hamilton M.D. 08/01/2025 2:04 PM
== END 2025-08-25 23:59 | disposition home or self-care (01) ==
LOC: SCTC 13:18
PROVIDERS: PCP Physician Assistant; Referring Provider Physician Assistant; Visit Provider Radiology Therapeutic Radiology
DX: C73 Malignant neoplasm of thyroid gland (principal); E89.0 Postprocedural hypothyroidism; Z92.3 Personal history of irradiation
CPT/HCPCS: 99213; G0463

== ENCOUNTER 2025-10-03 11:28 | Outpatient (RCR) | payer MEDICAID, SELFPAY ==
--- NOTE | 2025-10-03 12:38 | CTCFLWUP_ITS ---
[facility] [address] [place], [place] [address] FOLLOW-UP NOTE Date: 10/03/2025 MR#: [id number] Name: GRICELDA CRAMER : 1965 Dx: C73 Malignant neoplasm of thyroid gland Identification. Multifocal right and left papillary thyroid carcinoma total thyroidectomy performed 01/27/2025. pT1bN0. 9 lymph nodes negative for mets. Initially attempted radioiodine procedure in March which had to be abandoned due to developing tachyarrhythmia SVT with rapid ventricular response. Subsequent underwent procedure performed that made her into a sinus rhythm. This procedure was performed with her being off thyroid and receiving 32 mCi of radioiodine 07/20/2025. Postop scan 07/31/2025 showed no site of mets. Most recent labs ordered showed high TSH with low normal thyroid level. Patient is feeling well with no major medical conditions. Will increase Synthroid to 125 mcg check thyroglobulin and thyroglobulin antibody and see her back in 3 months. Electronically signed by: Alec Hamilton M.D. 10/03/2025 12:36 PM
== END 2025-10-25 23:59 | disposition home or self-care (01) ==
LOC: SCTC 11:28
PROVIDERS: PCP Physician Assistant; Referring Provider Physician Assistant; Visit Provider Radiology Therapeutic Radiology
DX: C73 Malignant neoplasm of thyroid gland (principal); E89.0 Postprocedural hypothyroidism; Z92.3 Personal history of irradiation
CPT/HCPCS: 99213; G0463

== ENCOUNTER → 2025-10-17 | Outpatient (CLI) | payer MEDICAID, SELFPAY ==
--- NOTE | 2025-10-17 13:15 | XR_ITS ---
Examination: Screening digital mammography, bilateral Computer aided detection 3-D breast Tomosynthesis, bilateral Date and time of exam: October 17, 2025, 1305 hours, comparison December 27, 2023 Indication: Screening Technique: Nonmagnified MLO, CC views of the breasts to been obtained, reconstructed from 3-D Tomosynthesis images. R2 computer aided detection program utilized for evaluation of suspicious masses and/or abnormal calcifications. 3-D Tomosynthesis images obtained. Findings: Scattered areas of fibroglandular density. Benign calcifications. No interval suspicious masses Impression: BI-RADS category II: Benign Findings. Recommend 1 year follow-up mammogram.
== END | disposition home or self-care (01) ==
LOC: CDIM 12:37
PROVIDERS: PCP Physician Assistant; Referring Provider Physician Assistant; Visit Provider Physician Assistant
DX: Z12.31 Encounter for screening mammogram for malignant neoplasm of breast (principal); R92.323 Mammographic fibroglandular density, bilateral breasts; R92.1 Mammographic calcification found on diagnostic imaging of breast
CPT/HCPCS: 77063; 77067